=== PATIENT | male | born 1990 | race African-American/Black ===

== ENCOUNTER 2025-05-28 09:55 | Outpatient (AMB) | payer BC, SELFPAY ==
--- OUTSIDE RECORDS SUMMARY | 2025-04-16 04:30 | XMS_ITS ---
Author Organization [facility] Address [address] [place] [address] Care Team Providers Care Cashier Assistant Name Role Phone Farzad Kong Primary Care Provider Unavailabl Elias Rivera Unavailable [phone] Encounters Encounter Location Date Provider Diagnosis [address] [address] 04/16/2025 Elias Daniel Plan Of Treatment Next Appt Details Provider Name:Elias Daniel , 07/06/2025 03:15:00 PM, [address] [place] [address], [phone], Progress Notes * Ab MARIODOB:[birth year] (35 yo M)Acc No.[id number]:04/16/2025 Progress Note Patient: Kalpesh HAUSER Ab Provider: Safia Daniel DPM :1990 A ge:35 Y S ex:Male Date:04/16/2025 Address:[address] [place] [address] [id number] Pcp:Farzad Kong Subjective: * Chief Complaints: * * Medical History: Objective: * Vitals: Assessment: Plan: * Treatment: * Images: * The named appointment provid er may or may not be the originator of this progress note, and it is not deemed complete until electronically signed by the appointment provider. Sign off status: Pending * Provider: Safia Daniel DPM Date: 0 04/16/2025 Generated for Otis kumar/Ann Marie/Maria Luisa on: 0 05/28/2025 10:46 AM EDT
--- OUTSIDE RECORDS SUMMARY | 2025-05-25 04:00 | XMS_ITS ---
Author Organization [facility] [address] Address [address] [place] [address] Care Team Providers Care Oracle Database Administrator Name Role Phone MARTY STAFFORD Unavailable [phone] Medications Medication SIG (Take, Route, Frequency, Duration) Notes Start Date End Date Status Mounjaro 2.5 MG/0.5ML ADMINISTER 2.5MG U NDER THE SKIN WEEKLY; Duration: 28 Not-Taking Mounjaro 7.5 MG/0.5ML 7.5mg Subcutaneous weekly; Duration: 30 days 05/25/2025 Active Folic Acid 1 MG 1 tablet Orally Once a day; Duration: 90 days 01/23/2023 Active Nystatin 892078 UNIT/GM 1 application Ex ternally Twice a day; Duration: 30 days 05/25/2025 Active Mounjaro 5 MG/0.5ML inject 5mg Subcutane ous once weekly; Duration: 30 days Active Mounjaro 5 MG/0.5ML ADMINISTER 5 MG UNDE R THE SKIN WEEKLY Subcutaneous weekly; Duration: 28 days Active Vital Signs Blood pressure systolic 132 mm Hg 05/25/20 25 Blood pressure diastolic 80 mm Hg 025 Heart Rate 81 /min 05/25/2025 Height 72 in 05/25/2025 Weight 233.4 lbs 05/25/2025 BMI 31.65 kg/m2 05/25/2025 Oximetry 99 % 05/25/2025 Encounters Encounter Location Date Provider Diagnosis [facility] [address] [address] 05/25/2025 MARTY STAFFORD Partial symptomatic epilepsy with complex partial seizures, not intractable, without status epilepticus G40.209 ; Annual physical exam Z00.00 ; Normocytic anemia D64.9 ; Cyst of scrotum L72.9 ; Hyperlipidemia, unspecified hyperlipidemia type E78.5 ; Obesity (BMI 30-39.9) E66.9 ; Encounter for examination of blood pressure without abnormal findings Z01.30 and Metabolic dysfunction-associated steatotic liver disease (MASLD) K76.0 Assessments Encounter Date Diagnosis (ICD Code) Assessment Notes Treatment Notes Treatment Clinical Notes Section Notes 05/25/2025 Partial symptomatic epilepsy with complex partial seizures, not intractable, without status epilepticus (ICD-10 - G40.209) Acute Concerns/Problem List: 05/25/2025 Due for annual ultrasound surveillance of the testicles We will review referred He obviously has metabolic syndrome and increasing insulin resistance Weight is up, ALT is 100, MASLD Will increase Mounjaro to 7.5 Discussed metabolic adaptation and proper diet Follow-up in 3 months with A1c Of note, some information is being carried forward from prior records for informational purposes only and is being cited so that efficiency, safety and quality of the patient's care is not compromised This note was prepared using voice recognition software and direct typing Please excuse inadvertent grinder operator automatic or typing errors, or uncorrected word substitutions Although every attempt has been made by the provider to proofread this document, occasional misspellings and typographical errors may still be present Due to the previous pandemic, and the use of personal protective equipment (PPE) This may decrease voice recognition accuracy Inadvertent grinder operator automatic errors may occur 05/25/2025 Annual physical exam (ICD-10 - Z00.00) Acute Concerns/Problem List: 05/25/2025 Due for annual ultrasound surveillance of the testicles We will review referred He obviously has metabolic syndrome and increasing insulin resistance Weight is up, ALT is 100, MASLD Will increase Mounjaro to 7.5 Discussed metabolic adaptation and proper diet Follow-up in 3 months with A1c Of note, some information is being carried forward from prior records for informational purposes only and is being cited so that efficiency, safety and quality of the patient's care is not compromised This note was prepared using voice recognition software and direct typing Please excuse inadvertent grinder operator automatic or typing errors, or uncorrected word substitutions Although every attempt has been made by the provider to proofread this document, occasional misspellings and typographical errors may still be present Due to the previous pandemic, and the use of personal protective equipment (PPE) This may decrease voice recognition accuracy Inadvertent grinder operator automatic errors may occur 05/25/2025 Normocytic anemia (ICD-10 - D64.9) Acute Concerns/Problem List: 05/25/2025 Due for annual ultrasound surveillance of the testicles We will review referred He obviously has metabolic syndrome and increasing insulin resistance Weight is up, ALT is 100, MASLD Will increase Mounjaro to 7.5 Discussed metabolic adaptation and proper diet Follow-up in 3 months with A1c Of note, some information is being carried forward from prior records for informational purposes only and is being cited so that efficiency, safety and quality of the patient's care is not compromised This note was prepared using voice recognition software and direct typing Please excuse inadvertent grinder operator automatic or typing errors, or uncorrected word substitutions Although every attempt has been made by the provider to proofread this document, occasional misspellings and typographical errors may still be present Due to the previous pandemic, and the use of personal protective equipment (PPE) This may decrease voice recognition accuracy Inadvertent grinder operator automatic errors may occur 05/25/2025 Cyst of scrotum (ICD-10 - L72.9) Acute Concerns/Problem List: 05/25/2025 Due for annual ultrasound surveillance of the testicles We will review referred He obviously has metabolic syndrome and increasing insulin resistance Weight is up, ALT is 100, MASLD Will increase Mounjaro to 7.5 Discussed metabolic adaptation and proper diet Follow-up in 3 months with A1c Of note, some information is being carried forward from prior records for informational purposes only and is being cited so that efficiency, safety and quality of the patient's care is not compromised This note was prepared using voice recognition software and direct typing Please excuse inadvertent grinder operator automatic or typing errors, or uncorrected word substitutions Although every attempt has been made by the provider to proofread this document, occasional misspellings and typographical errors may still be present Due to the previous pandemic, and the use of personal protective equipment (PPE) This may decrease voice recognition accuracy Inadvertent grinder operator automatic errors may occur 05/25/2025 Hyperlipidemia, unspecified hyperlipidemia type (ICD-10 - E78.5) Acute Concerns/Problem List: 05/25/2025 Due for annual ultrasound surveillance of the testicles We will review referred He obviously has metabolic syndrome and increasing insulin resistance Weight is up, ALT is 100, MASLD Will increase Mounjaro to 7.5 Discussed metabolic adaptation and proper diet Follow-up in 3 months with A1c Of note, some information is being carried forward from prior records for informational purposes only and is being cited so that efficiency, safety and quality of the patient's care is not compromised This note was prepared using voice recognition software and direct typing Please excuse inadvertent grinder operator automatic or typing errors, or uncorrected word substitutions Although every attempt has been made by the provider to proofread this document, occasional misspellings and typographical errors may still be present Due to the previous pandemic, and the use of personal protective equipment (PPE) This may decrease voice recognition accuracy Inadvertent grinder operator automatic errors may occur 05/25/2025 Obesity (BMI 30-39.9) (ICD-10 - E66.9) Acute Concerns/Problem List: 05/25/2025 Due for annual ultrasound surveillance of the testicles We will review referred He obviously has metabolic syndrome and increasing insulin resistance Weight is up, ALT is 100, MASLD Will increase Mounjaro to 7.5 Discussed metabolic adaptation and proper diet Follow-up in 3 months with A1c Of note, some information is being carried forward from prior records for informational purposes only and is being cited so that efficiency, safety and quality of the patient's care is not compromised This note was prepared using voice recognition software and direct typing Please excuse inadvertent grinder operator automatic or typing errors, or uncorrected word substitutions Although every attempt has been made by the provider to proofread this document, occasional misspellings and typographical errors may still be present Due to the previous pandemic, and the use of personal protective equipment (PPE) This may decrease voice recognition accuracy Inadvertent grinder operator automatic errors may occur 05/25/2025 Encounter for examination of blood pressure without abnormal findings (ICD-10 - Z01.30) Acute Concerns/Problem List: 05/25/2025 Due for annual ultrasound surveillance of the testicles We will review referred He obviously has metabolic syndrome and increasing insulin resistance Weight is up, ALT is 100, MASLD Will increase Mounjaro to 7.5 Discussed metabolic adaptation and proper diet Follow-up in 3 months with A1c Of note, some information is being carried forward from prior records for informational purposes only and is being cited so that efficiency, safety and quality of the patient's care is not compromised This note was prepared using voice recognition software and direct typing Please excuse inadvertent grinder operator automatic or typing errors, or uncorrected word substitutions Although every attempt has been made by the provider to proofread this document, occasional misspellings and typographical errors may still be present Due to the previous pandemic, and the use of personal protective equipment (PPE) This may decrease voice recognition accuracy Inadvertent grinder operator automatic errors may occur 05/25/2025 Metabolic dysfunction-associ ated steatotic liver disease (MASLD) (ICD-10 - K76.0) Acute Concerns/Problem List: 05/25/2025 Due for annual ultrasound surveillance of the testicles We will review referred He obviously has metabolic syndrome and increasing insulin resistance Weight is up, ALT is 100, MASLD Will increase Mounjaro to 7.5 Discussed metabolic adaptation and proper diet Follow-up in 3 months with A1c Of note, some information is being carried forward from prior records for informational purposes only and is being cited so that efficiency, safety and quality of the patient's care is not compromised This note was prepared using voice recognition software and direct typing Please excuse inadvertent grinder operator automatic or typing errors, or uncorrected word substitutions Although every attempt has been made by the provider to proofread this document, occasional misspellings and typographical errors may still be present Due to the previous pandemic, and the use of personal protective equipment (PPE) This may decrease voice recognition accuracy Inadvertent grinder operator automatic errors may occur Plan Of Treatment Medication Medication Name Sig Start Date Stop Date Notes Mounjaro 7.5 MG/0.5ML 7.5mg Subcutaneous weekly; Duration: 30 days 05/25/2025 Nystatin 542266 UNIT/GM 1 application Ex ternally Twice a day; Duration: 30 days 05/25/2025 Next Appt Details Provider Name:MARTY STAFFORD, 08/17/2025 08:00:00 AM, [address] [facility], [facility] [address], [place], [address], Progress Notes * DAT CORREADOB:[birth year] (35 yo M)Acc No.[id number]:05/25/2025 CPE Patient: Kalpesh DAT HAUSER Provider: Kay STAFFORD NP :1990 A ge:35 Y S ex:Male Date:05/25/2025 Address:[address] [place], [place] [address], [phone] Subjective: * Chief Complaints: * * HPI: C onstitutional: Patient is here today for annual CPE Full past medical history, social history, family history, allergies and current medications were reviewed and updated. Acute Concerns/Problem List: 05/25/2025 Labs reviewed Pt feeling well, no acute complaints. Weight is up, ALT is up, We discussed metabolic adaptation, prediabetes insulin resistance No new seizures, still taking Keppra. followed by neurology Currently taking Mounjaro 5mg, tolerating with no s/e. 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3, hematocrit 36.7, normal MCV and platelets Total cholesterol 178, LDL 104, HDL 52, triglycerides 108 Vitamin D 30 TSH 2.10 Renal function electrolytes and LFTs are stable ALT of 100 likely fatty liver A1c 5.7 prediabetic UA mostly unremarkable 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 * ROS: A ll Other Systems: Review of Systems (ROS) A ll others negative except those mentioned in HPI. * Medical History: * Medications: T aking Folic Acid 1 MG Tablet 1 tablet Orally Once a day , Taking Mounjaro 5 MG/0.5ML Solution Pen-injector inject 5mg Subcutaneous once weekly , Taking Mounjaro 5 MG/0.5ML Solution Auto-injector ADMINISTER 5 MG UNDER THE SKIN WEEKLY Subcutaneous weekly , Not-Taking Mounjaro 2.5 MG/0.5ML Solution Auto-injector ADMINISTER 2.5MG UNDER THE SKIN WEEKLY Objective: * Vitals: H R:81/min, BP:132/80mm Hg, Wt:233.4lbs, BMI:31.65Index, Ht: 72 in, Oxygen sat %:99%. * Examination: G eneral Examination: GENERAL APPEARANCE: i n no acute distress, well developed, well nourished. H EAD: n ormocephalic, atraumatic. E YES: p upils equal, round, reactive to light and accommodation. E ARS: n ormal. O RAL CAVITY: m [place] moist. T HROAT: c lear. N PEPE/THYROID: n pepe supple, full range of motion, no cervical lymphadenopathy. S KIN: n o suspicious lesions, warm and dry. H EART: n o murmurs, regular rate and rhythm, S1, S2 normal. L UNGS: c lear to auscultation bilaterally. A BDOMEN: n ormal, bowel sounds present, soft, nontender, nondistended. E XTREMITIES: n o clubbing, cyanosis, or edema. N EUROLOGIC: n onfocal, motor strength normal upper and lower extremities, sensory exam intact. Assessment: * Assessment: 1. A nnual physical exam - Z00.00 (Primary) 2 . P artial symptomatic epilepsy with complex partial seizures, not intractable, without status epilepticus - G40.209 ?3. N ormocytic anemia - D64.9 4 . C yst of scrotum - L72.9 5. H yperlipidemia, unspecified hyperlipidemia type - E78.5 6 . O besity (BMI 30-39.9) - E66.9 7 . E ncounter for examination of blood pressure without abnormal findings - Z01.30 8 . M etabolic dysfunction-associated steatotic liver disease (MASLD) - K76.0 Acute Concerns/Problem List: 05/25/2025 Due for annual ultrasound surveillance of the testicles We will review referred He obviously has metabolic syndrome and increasing insulin resistance Weight is up, ALT is 100, MASLD Will increase Mounjaro to 7.5 Discussed metabolic adaptation and proper diet Follow-up in 3 months with A1c Of note, some information is being carried forward from prior records for informational purposes only and is being cited so that efficiency, safety and quality of the patient's care is not compromised This note was prepared using voice recognition software and direct typing Please excuse inadvertent grinder operator automatic or typing errors, or uncorrected word substitutions Although every attempt has been made by the provider to proofread this document, occasional misspellings and typographical errors may still be present Due to the previous pandemic, and the use of personal protective equipment (PPE) This may decrease voice recognition accuracy Inadvertent grinder operator automatic errors may occur Plan: * Treatment: * Images: Billing Information: * Visit Code: 42471 Preventive Care Est Pt. Age 18-39. Modifiers: SA * Procedure Codes: Care Plan Details* * Sign off status: Completed true * Provider: Kay STAFFORD NP Date: 05/25/2025 Generated for Otis kumar/Ann Marie/Maria Luisa on: 05/28/2025 10:46 AM EDT History and Physical Notes * HPI (History of Present Illness) Category Sub-Category Detail Notes Category Not es Constitutional Patient is here today for annual CPE Full past medical history, social history, family history, allergies and current medications were reviewed and updated. Acute Concerns/Problem List: 05/25/2025 Labs reviewed Pt feeling well, no acute complaints. Weight is up, ALT is up, We discussed metabolic adaptation, prediabetes insulin resistance No new seizures, still taking Keppra. followed by neurology Currently taking Mounjaro 5mg, tolerating with no s/e. 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3, hematocrit 36.7, normal MCV and platelets Total cholesterol 178, LDL 104, HDL 52, triglycerides 108 Vitamin D 30 TSH 2.10 Renal function electrolytes and LFTs are stable ALT of 100 likely fatty liver A1c 5.7 prediabetic UA mostly unremarkable 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[place] 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, 1 boy/1 girl no tobacco use, recr THC no other illicit drug use Health Maintenance: COVID MRNA x2 Flu 2023 TDAP UTD Examination Category Sub-Category Detail Notes Category Not es General Examination GENERAL APPEARANCE: in no ac [place] distress, well developed, well nourished HEAD: normocephalic, atrau matic EYES: pupils equal, round, reactive to light and accommodation EARS: normal THROAT: clear NECK/THYROID: neck supple, full ra nge of motion, no cervical lymphadenopathy HEART: no murmurs, regular rate and rhythm, S1, S2 normal LUNGS: clear to auscultatio n bilaterally ABDOMEN: normal, bowel sounds present, soft, nontender, nondistended NEUROLOGIC: nonfocal, motor stre ngth normal upper and lower extremities, sensory exam intact SKIN: no suspicious lesion s, warm and dry EXTREMITIES: no clubbing, cyanosi s, or edema ORAL CAVITY: mucosa moist
--- NOTE | 2025-05-28 10:39 | MHC.OFFVIS ---
Intake Visit Reasons: 1 Year Follow Up Allergies No Known Allergies Allergy (Verified 05/28/25 10:43) Medication List - Last Reconciled 05/28/25 by Jeanne Urban CNP levetiracetam 500 mg PO BID tirzepatide (Mounjaro) 7.5 mg subcut QWEEK HPI Comments Details: 35-year-old man with seizure disorder. Seizures happened during sleep. His noted his body shaking all over and frothing. He did not urinate. Each lasted for a few minutes. When he woke up he was verbally aggressive. He was doing okay. No further seizures. He was taking levetiracetam twice a day. His told him that his mood was not so good, more irritable and seemed to be more quick to anger. Sleep was not so good. 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 PENDING SALE TO [facility] Medical History (Updated 05/28/25 @ 10:47 by Jeanne Urban CNP) Obesity Generalized seizure disorder Review of Systems Const Denies chills, Denies daytime sleepiness, Denies difficulty sleeping, Denies fatigue, Denies fever(s), Denies frequent falls, Denies headache(s), Denies increased appetite, Denies poor appetite, Denies snoring, Denies weakness, Denies weight gain and Denies weight loss Eyes Denies loss of vision ENT Denies vertigo, Denies dizziness and Denies headache(s) Card Denies chest pain at rest, Denies chest pain with activity, Denies syncope, Denies leg edema and Denies palpitations Resp Denies snoring GI Denies constipation, Denies heartburn, Denies diarrhea and Denies nausea Denies urinary frequency, Denies urinary incontinence and Denies urinary urgency Musc Denies abnormal gait, Denies numbness and Denies tingling Skin/Breast Denies dry skin and Denies rash Neuro Denies abnormal gait, Denies vertigo, Denies dizziness, Denies syncope, Denies frequent falls, Denies headache(s), Denies lack of coordination, Denies loss of vision, Denies memory loss, Denies numbness, Denies restless legs, Denies seizure-like activity, Denies tingling, Denies paresthesias, Denies tremor(s) and Denies weakness Psych Reports anxiety, Reports depression, Denies auditory hallucinations, Denies memory loss, Denies visual hallucinations, Denies suicidal ideation and Reports other (stress) Endo Denies fatigue and Denies palpitations Physical Exam Const Other: General Appearance:? normal, in no acute distress. Skin:? no rashes, no significant birthmarks. Heart:? S1, S2 normal, no murmurs. Lungs:? clear anteriorly and posteriorly. Extremities:? no edema. Psych:? alert, oriented, cognitive function intact, cooperative with exam. Neuro Other: Mental Status:?Normal attention, orientation, memory and affect.? Cranial Nerves:?Pupils are equal, round and reactive to light. External occular muscles are intact. Visual coe are full. Face is symmetrical. Facial sensations are normal. Tongue is midline. Palate elevates symmetrically. Shoulder shrugging is normal. Hearing to bedside conversation is normal. Sensory Exam:?....? Coordination:?No ataxia,?no titubation.? Gait Exam: Within normal limits. Extrapyramidal System:?No tremor, rigidity with normal facial expressions.? Pronator Drift:?Not present.? Involuntary Movements:?No tremors seen.? Speech:?Normal.? Results Reviewed Results Reviewed: MRI brain WO at [facility] in May 2019: a few small non specific WM lesions, non specific EEG at [facility] in Jun 2019: left frontal sharps Assessment & Plan Assessment & Plan (1) Generalized seizure disorder: Code(s): G40.309 - Generalized idiopathic epilepsy and epileptic syndromes, not intractable, without status epilepticus Category: Medical Plan: Seizures were controlled with levetiracetam and medication was continued. Continue levetiracetam 500mg 1 tablet twice a day. (2) Anxiety: Code(s): F41.9 - Anxiety disorder, unspecified Category: Medical Plan: Start sertraline 25mg 1 tablet daily, use/side effects reviewed. Medications: New sertraline 25 mg PO DAILY 30 tabs 1RF 30 days Coding Level of Care Code Est Pt Level 4 (57196) Diagnoses Generalized seizure disorder G40.309 Anxiety F41.9
--- OUTSIDE RECORDS SUMMARY | 2025-05-28 10:46 | XMS_ITS | Clinical Summary ---
Author Organization [facility] Address [address] [place] [address] Phone Care Team Providers Care Barrel Cooper Name Role Phone Nolberto Rodriguez NP Primary Care Provider [phone] Social History Tobacco Use Types Packs/Day Years Used Date Smoking Tobacco: Never Assessed Sex and Gender Information Value Date Recorded Sex Assigned at Male 05/27/2025 10:01 AM EDT Legal Sex Male 5:38 AM EST Gender Identity Male 05/27/2025 10:01 AM EDT Sexual Orientation Straight 05/27/2025 10 :01 AM EDT Plan of Treatment Health Maintenance Due Date Last Done Comments Diabetes: Annual Foot Exam 1999 Diabetes: Annual Retina Eye Exam 1999 DTaP,Tdap,and Td Vaccines (1 - Tdap) 02/26/2008 Hepatitis A Vaccines (1 of 2 - Risk 2-dose series) 02/26/2008 Hepatitis B Vaccines (1 of 3 - 19+ 3-dose series) 02/26/2008 HIV Screening 09/17/2022 Hepatitis C Screening 09/17/2022 Social Influencers of Health Screening 09/17/2022 COVID-19 Vaccine (3 - 2023-2 5 season) 2024 12/17/2020, 11/19/2020 Depression Screening 10/15/2024 Diabetes: Annual Urine Albumin-Creatinine Ratio (uACR) 05/22/2025 Influenza Vaccine (#1) 2025 07/31/2023 Diabetes: Blood Sugar Contro l Test (HGBA1C) 11/20/2025 05/20/2025 Diabetes: Annual GFR (Glomerular Filtration Rate) 05/20/2026 05/20/2025 Cholesterol Screening (Lipid Panel) 05/20/2030 05/20/2025 HIB Vaccines Aged Out No longer eligi ble based on patient's age to complete this topic HPV Vaccines Aged Out No longer eligi ble based on patient's age to complete this topic IPV Vaccines Aged Out No longer eligi ble based on patient's age to complete this topic MMR Vaccines Aged Out No longer eligi ble based on patient's age to complete this topic Meningococcal ACWY Vaccine Aged Out N o longer eligible based on patient's age to complete this topic Meningococcal B Vaccine Aged Out No l onger eligible based on patient's age to complete this topic Pneumococcal Vaccine: Pediatrics (0 to 5 Years) and At-Risk Patients (6 to 49 Years) Aged Out No longer eligible b ased on patient's age to complete this topic RSV Immunization Patients Under 20 months Aged Out No longer eligible b ased on patient's age to complete this topic Varicella Vaccines Aged Out No longer eligible based on patient's age to complete this topic Procedures Procedure Name Priority Date/Time Associated Diagnosis Comments URINALYSIS WITH REFLEX MICROSCOPIC Routine 05/20/2025 7:47 AM EDT Screening for diabetes mellitus Avitaminosis D Routine general medical examination at a health care facility Screening for thyroid disorder Screening for lipoid disorders URINALYSIS WITH REFLEX MICROSCOPIC Routine 05/20/2025 7:47 AM EDT Screening for diabetes mellitus Avitaminosis D Routine general medical examination at a health care facility Screening for thyroid disorder Screening for lipoid disorders CBC WITH AUTO DIFFERENTIAL Routine 05/20/2025 7:39 AM EDT Screening for diabetes mellitus Avitaminosis D Routine general medical examination at a health care facility Screening for thyroid disorder Screening for lipoid disorders LIPID PANEL WITH REFLEX TO DIRECT LDL Routine 05/20/2025 7:39 AM EDT Screening for diabetes mellitus Avitaminosis D Routine general medical examination at a health care facility Screening for thyroid disorder Screening for lipoid disorders THYROID STIMULATING HORMONE Routine 05/20/2025 7:39 AM EDT Screening for diabetes mellitus Avitaminosis D Routine general medical examination at a health care facility Screening for thyroid disorder Screening for lipoid disorders CBC AND DIFFERENTIAL Routine 05/20/2025 7:39 AM EDT Screening for diabetes mellitus Avitaminosis D Routine general medical examination at a health care facility Screening for thyroid disorder Screening for lipoid disorders COMPREHENSIVE METABOLIC PANEL Routine 05/20/2025 7:39 AM EDT Screening for diabetes mellitus Avitaminosis D Routine general medical examination at a [facility] Screening for thyroid disorder Screening for lipoid disorders VITAMIN D 25 HYDROXY Routine 05/20/2025 7:39 AM EDT Screening for diabetes mellitus Avitaminosis D Routine general medical examination at a [facility] Screening for thyroid disorder Screening for lipoid disorders HEMOGLOBIN A1C Routine 05/20/2025 7:39 AM EDT Screening for diabetes mellitus Avitaminosis D Routine general medical examination at a [facility] Screening for thyroid disorder Screening for lipoid disorders from Last 3 Months Results * Urinalysis with reflex microscopic (05/20/2025 7:47 AM EDT) Pathologist [facility] [place] Specific [place] Urine 1.014 1.003 - 1.030 LAB URINALYSIS - AUTOMATED METHOD 05/20/2025 8:42 AM [facility] pH, Urine 8.0 5.0 - 8.0 pH LAB URINALYSIS - AUTOMATED METHOD 05/20/2025 8:42 AM [facility] Leukocytes, Urine Negative Negative LAB URINALYSIS - AUTOMATED METHOD 05/20/2025 8:42 AM [facility] Nitrite, Urine Negative Negative LAB URINALYSIS - AUTOMATED METHOD 05/20/2025 8:42 AM [facility] Protein, Urine Negative <=Trace mg/dL LAB URINALYSIS - AUTOMATED METHOD 05/20/2025 8:42 AM [facility] Glucose, Urine Negative Negative mg/dL LAB URINALYSIS - AUTOMATED METHOD 05/20/2025 8:42 AM [facility] Ketones, Urine Negative Negative mg/dL LAB URINALYSIS - AUTOMATED METHOD 05/20/2025 8:42 AM EDT [facility] Urobilinogen, Urine 0.2 0.2 - 1.0 mg/dL LAB URINALYSIS - AUTOMATED METHOD 05/20/2025 8:42 AM EDT [facility] Bilirubin, Urine Negative Negative LAB URINALYSIS - AUTOMATED METHOD 05/20/2025 8:42 AM EDT [facility] Blood, Urine Negative Negative LAB URINALYSIS - AUTOMATED METHOD 05/20/2025 8:42 AM EDT [facility] Urine Urine specimen obtained by clean catch procedure / Unknown Non-blood Collection / Unknown 05/20/2025 7:47 AM EDT 05/20/2025 8:26 AM EDT us Nolberto Rodriguez CLIENT RELATIONSHIP CONSULTANT LAB URINE ORDERABLES Final Re sult [facility] [address] [place] [address], * (ABNORMAL) Lipid panel with reflex to direct LDL (05/20/2025 7:39 AM EDT) Cholesterol 178 0 - 200 mg/dL LAB CHEMISTRY METHOD 05/20/2025 9:00 AM [facility] Triglycerides 108 0 - 150 mg/dL LAB CHEMISTRY METHOD 05/20/2025 9:00 AM [facility] HDL 52 >=40 mg/dL LAB CHEMISTRY METHOD 05/20/2025 9:00 AM [facility] LDL Calculated 104(H) 0 - 100 mg/dL LAB CHEMISTRY METHOD 05/20/2025 9:00 AM [facility] Comment:Estimated LDL Calcul ated using equation: Total cholesterol - HDL cholesterol - (Triglycerides/5) VLDL Cholesterol Paul 21.6 mg/dL LAB CHEMISTRY METHOD 05/20/2025 9:00 AM EDT [facility] Non HDL Chol. (LDL+VLDL) 126 <145 mg/dL LAB CHEMISTRY METHOD 05/20/2025 9:00 AM T [facility] Chol/HDL Ratio 3.4 0.0 - 4.4 LAB CHEMISTRY METHOD 05/20/2025 9:00 AM [facility] Blood Venous blood specimen / Unknown Venipuncture / Unknown 05/20/2025 7:39 AM EDT 05/20/2025 8:25 AM EDT us Nolberto Rodriguez CLIENT RELATIONSHIP CONSULTANT LAB BLOOD ORDERABLES Final Re sult [facility] [address] [place] [address], * (ABNORMAL) CBC auto differential (05/20/2025 7:39 AM EDT) WBC 7.8 4.8 - 10.8 K/mcL LAB HEMETOLOGY METHOD 05/20/2025 8:30 AM [facility] RBC 3.80(L) 4.50 - 5.50 M/[facility] LAB HEMETOLOGY METHOD 05/20/2025 8:30 AM [facility] Hemoglobin 12.3(L) 13.5 - 17.5 g/dL LAB HEMETOLOGY METHOD 05/20/2025 8:30 AM [facility] Hematocrit 36.7(L) 42.0 - 54.0 % LAB HEMETOLOGY METHOD 05/20/2025 8:30 AM [facility] MCV 96.6 79.0 - 98.0 FL LAB HEMETOLOGY METHOD 05/20/2025 8:30 AM [facility] MCH 32.4(H) 27.0 - 32.0 pcg LAB HEMETOLOGY METHOD 05/20/2025 8:30 AM [facility] MCHC 33.5 32.0 - 37.0 g/dL LAB HEMETOLOGY METHOD 05/20/2025 8:30 AM [facility] RDW 12.9 11.0 - 15.0 % LAB HEMETOLOGY METHOD 05/20/2025 8:30 AM [facility] Platelets 330 130 - 400 K/mcL LAB HEMETOLOGY METHOD 05/20/2025 8:30 AM [facility] MPV 9.7 7.0 - 11.0 FL LAB HEMETOLOGY METHOD 05/20/2025 8:30 AM [facility] NRBC 0.0 <1.0 % LAB HEMETOLOGY METHOD 05/20/2025 8:30 AM [facility] NRBC Absolute 0.00 <0.10 K/mcL LAB HEMETOLOGY METHOD 05/20/2025 8:30 AM [facility] Neutrophils Relative 59.7 % LAB HEMETOLOGY METHOD 05/20/2025 8:30 AM [facility] Lymphocytes Relative 28.5 % LAB HEMETOLOGY METHOD 05/20/2025 8:30 AM [facility] Monocytes Relative 8.7 % LAB HEMETOLOGY METHOD 05/20/2025 8:30 AM [facility] Eosinophils Relative 2.4 % LAB HEMETOLOGY METHOD 05/20/2025 8:30 AM [facility] Basophils Relative 0.6 % LAB HEMETOLOGY METHOD 05/20/2025 8:30 AM [facility] Immature Granulocytes Relative 0.1 % LAB HEMETOLOGY METHOD 05/20/2025 8:30 AM [facility] Neutrophils Absolute 4.66 1.50 - 7.00 K/mcL LAB HEMETOLOGY METHOD 05/20/2025 8:30 AM [facility] Lymphocytes Absolute 2.23 1.00 - 5.00 K/mcL LAB HEMETOLOGY METHOD 05/20/2025 8:30 AM EDT [facility] Monocytes Absolute 0.68 0.20 - 1.00 K/[facility] LAB HEMETOLOGY METHOD 05/20/2025 8:30 AM EDT [facility] Eosinophils Absolute 0.19 0.00 - 0.50 K/[facility] LAB HEMETOLOGY METHOD 05/20/2025 8:30 AM EDT [facility] Basophils Absolute 0.05 0.00 - 0.20 K/[facility] LAB HEMETOLOGY METHOD 05/20/2025 8:30 AM EDT [facility] Immature Granulocytes Absolute 0.01 0.00 - 0.03 K/[facility] LAB HEMETOLOGY METHOD 05/20/2025 8:30 AM EDT [facility] Blood Venous blood specimen / Unknown Venipuncture / Unknown 05/20/2025 7:39 AM EDT 05/20/2025 8:26 AM EDT Nolberto Rodriguez CLIENT RELATIONSHIP CONSULTANT LAB BLOOD ORDERABLES Final Re sult Performing Organization Address City/[facility]/ZIP Co de Phone Number [facility] [address] [place] [address], * Vitamin D 25 hydroxy (05/20/2025 7:39 AM EDT) Vit D, 25-Hydroxy 30.2 30.0 - 80.0 ng/mL LAB CHEMISTRY METHOD 05/20/2025 9:54 AM EDT [facility] Blood Venous blood specimen / Unknown Venipuncture / Unknown 05/20/2025 7:39 AM EDT 05/20/2025 8:25 AM EDT Nolberto Rodriguez CLIENT RELATIONSHIP CONSULTANT LAB BLOOD ORDERABLES Final Re sult [facility] [address] [place] [address], [place] [phone] * Thyroid stimulating hormone (05/20/2025 7:39 AM EDT) [facility] TSH 2.10 0.40 - 4.00 mcIU/mL LAB CHEMISTRY METHOD 05/20/2025 9:54 AM EDT [facility] Blood Venous blood specimen / Unknown Venipuncture / Unknown 05/20/2025 7:39 AM EDT 05/20/2025 8:25 AM EDT Nolberto Rodriguez CLIENT RELATIONSHIP CONSULTANT LAB BLOOD ORDERABLES Final Re sult Performing Organization Address [facility]/ZIP Co de Phone Number [facility] [address] [place] [address], [place] [phone] * Hemoglobin A1c (05/20/2025 7:39 AM EDT) [facility] Hemoglobin A1C 5.7 <6.5 % LAB CHEMISTRY METHOD 05/20/2025 10:22 AM EDT [facility] Mean Bld Glu Estim. 117 mg/dL LAB CHEMISTRY METHOD 05/20/2025 10:22 AM EDT [facility] Blood Venous blood specimen / Unknown Venipuncture / Unknown 05/20/2025 7:39 AM EDT 05/20/2025 8:26 AM EDT Nolberto Rodriguez CLIENT RELATIONSHIP CONSULTANT LAB BLOOD ORDERABLES Final Re sult [facility] [address] [place] [address], [place] [phone] * (ABNORMAL) Comprehensive metabolic panel (05/20/2025 7:39 AM EDT) [facility] Sodium 137 133 - 145 mmol/L LAB CHEMISTRY METHOD 05/20/2025 9:04 AM EDT [facility] Potassium 4.2 3.5 - 5.5 mmol/L LAB CHEMISTRY METHOD 05/20/2025 9:04 AM [facility] Chloride 107 96 - 110 mmol/L LAB CHEMISTRY METHOD 05/20/2025 9:04 AM [facility] CO2 28 21 - 32 mmol/L LAB CHEMISTRY METHOD 05/20/2025 9:04 AM [facility] Anion Gap 2(L) 3 - 11 LAB CHEMISTRY METHOD 05/20/2025 9:04 AM [facility] Glucose 83 70 - 100 mg/dL LAB CHEMISTRY METHOD 05/20/2025 9:04 AM [facility] BUN 19 5 - 25 mg/dL LAB CHEMISTRY METHOD 05/20/2025 9:04 AM [facility] Creatinine 0.85 0.70 - 1.30 mg/dL LAB CHEMISTRY METHOD 05/20/2025 9:04 AM [facility] eGFR 115 >=60 mL/min/1. 73m2 LAB CHEMISTRY METHOD 05/20/2025 9:04 AM [facility] Comment:Calculation based on the Chronic Kidney Disease Epidemiology Collaboration (CKD-EPI) equation refit without adjustment for race. BUN/Creatinine Ratio 22.4 LAB CHEMISTRY METHOD 05/20/2025 9:04 AM [facility] Calcium 9.7 8.5 - 10.5 mg/dL LAB CHEMISTRY METHOD 05/20/2025 9:04 AM [facility] AST (SGOT) 42 10 - 42 unit/L LAB CHEMISTRY METHOD 05/20/2025 9:04 AM [facility] ALT (SGPT) 100(H) 10 - 60 unit/L LAB CHEMISTRY METHOD 05/20/2025 9:04 AM [facility] Alkaline Phosphatase 99 42 - 121 unit/L LAB CHEMISTRY METHOD 05/20/2025 9:04 AM EDT [facility] Total Protein 7.1 6.0 - 8.0 g/dL LAB CHEMISTRY METHOD 05/20/2025 9:04 AM EDT [facility] Albumin 4.0 3.2 - 5.0 g/dL LAB CHEMISTRY METHOD 05/20/2025 9:04 AM EDT [facility] Total Bilirubin 0.5 0.0 - 1.4 mg/dL LAB CHEMISTRY METHOD 05/20/2025 9:04 AM EDT [facility] Blood Venous blood specimen / Unknown Venipuncture / Unknown 05/20/2025 7:39 AM EDT 05/20/2025 8:25 AM EDT Nolberto Rodriguez NP LAB BLOOD ORDERABLES Final Re sult [facility] [address] [place] [address], from Last 3 Months Insurance Care Teams Barrel Cooper Relationship Specialty Start Date End Date Nolberto Rodriguez, TANESHA [address] [address] PCP - General Nurse Practitioner 05/20/25
--- OUTSIDE RECORDS SUMMARY | 2025-05-28 10:46 | XMS_ITS ---
[facility] Name [facility] Organization Unknown Care Team Organization Name Specialty Phone Email Start Date End Da sherwin [facility] ROWAN GOOD Primary Care 10/23/2022 06/02/2024
== END 2025-05-28 10:52 | disposition home or self-care (01) ==
LOC: HO.HSM 10:05
PROVIDERS: PCP Internal Medicine; Referring Provider Internal Medicine; Visit Provider Registered Nurse
DX: G40.309 Generalized idiopathic epilepsy and epileptic syndromes, not intractable, without status epilepticus (principal); F41.9 Anxiety disorder, unspecified
CPT/HCPCS: 99214

== ENCOUNTER 2025-07-10 08:56 | Outpatient (AMB) | payer BC, SELFPAY ==
--- OUTSIDE RECORDS SUMMARY | 2025-04-16 04:30 | XMS_ITS ---
Author Organization [facility] Address [address] [place] [address] Care Team Providers Care Easter Bunny Name Role Phone Farzad Kong Primary Care Provider Unavailabl Elias Rivera Unavailable [phone] Encounters Encounter Location Date Provider Diagnosis [address] [address] 04/16/2025 Elias Daniel Plan Of Treatment Next Appt Details Provider Name:Elias Daniel , 10/22/2025 01:45:00 PM, [address] [place] [address], [phone], Progress Notes * Ab MARIODOB:[birth year] (35 yo M)Acc No.[id number]:04/16/2025 Progress Note Patient: Kalpesh HAUSER Ab Provider: Safia Daniel DPM :1990 A ge:35 Y S ex:Male Date:04/16/2025 Address:[address] [place] [address] [id number] Pcp:Farzad Kong Subjective: * Chief Complaints: * [...] for Otis kumar/Ann Marie/Maria Luisa on: 0 07/10/2025 09:34 AM EDT
--- OUTSIDE RECORDS SUMMARY | 2025-07-06 11:15 | XMS_ITS ---
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 Name Role Phone Dilan Farzad Primary Care Provider Elias Rosado Unavailable [phone] Allergies No Known Allergies REASON FOR VISIT At Risk Footcare, Painful Nail(s) aggrevated by shoes and causing difficulty standing/walking., Wart(s), Toe Irritation Medications Medication SIG (Take, Route, Frequency, Duration) Notes Start Date End Date Status Ammonium Lactate 12 % APPLY TOPICALLY TO THE AFFECTED AREA TWICE DAILY; Duration: 30 Active Extra Depth Orthopedic Shoes (1 Pair) with Customized Heat Molded Multidensity Innersoles (3 Pair) as directed Dx: NIDDM (E11.9), Hammertoe Foot Deformity (M20.41,M20.42), Preulcerative Skin Lesion(s) (L85.1) Active levETIRAcetam 500 MG 1 tablet Orally leeanna ry 12 hrs Not-Taking Ciclopirox Olamine 0.77 % 1 application to affected area Externally to feet Twice a day; Duration: 30 days Active Mounjaro 2.5 MG/0.5ML as directed Subcutaneous Active Sertraline HCl 25 MG 1 tablet Orally Onc e a day Active Keppra Active Social History Tobacco Use: Social History Observation Description Date Details (start date - stop date) Never Smoker NA - NA Tobacco use other than smoking: Question Answer Notes Are you an other tobacco user? No Tobacco Control (Standard) Question Answer Notes Tobacco use: Nonsmoker Additional Findings: Tobacco non-user Current no nsmoker AUDIT-C (Standard) Question Answer Notes Did you have a drink containing alcohol in the p ast year? No Points 0 Interpretation Negative Vital Signs Height 5ft 11in in 07/06/2025 Weight 220 lbs 07/06/2025 BMI 30.68 kg/m2 07/06/2025 Blood pressure systolic 131 mm Hg 07/06/20 25 Blood pressure diastolic 69 mm Hg 025 Procedures Procedure Date Ordered Date Performed Result Body Sit e 57519-DRGAMYO NAIL, 6 OR MORE 07/06/2025 N/A 50831-Hqyn Destruction, 1-14 07/06/2025 N/A Encounters Encounter Location Date Provider Diagnosis [facility] [address] [address] 07/06/2025 Elias María Pain in right toe(s) M79.674 ; Plantar wart B07.0 ; Tinea unguium B35.1 ; Pain in left toe(s) M79.675 ; Type 2 diabetes mellitus without complication E11.9 ; Right foot pain M79.671 ; Other hammer toe(s) (acquired), right foot M20.41 and Other hammer toe(s) (acquired), left foot M20.42 Assessments Encounter Date Diagnosis (ICD Code) Assessment Notes Treatment Notes Treatment Clinical Notes Section Notes 07/06/2025 Pain in right toe(s) (ICD-10 - M79.674) 07/06/2025 Plantar wart (ICD-10 - B07.0) 07/06/2025 Tinea unguium (ICD-10 - B35.1) 07/06/2025 Pain in left toe(s) (ICD-10 - M79.675) 07/06/2025 Type 2 diabetes mellitus without complication (ICD-10 - E11.9) 07/06/2025 Right foot pain (ICD-10 - M79.671) 07/06/2025 Other hammer toe(s) (acquired), right foot (ICD-10 - M20.41) 07/06/2025 Other hammer toe(s) (acquired), left foot (ICD-10 - M20.42) Plan Of Treatment Pending Test Test Name Order Date 92743-MMPEOLE NAIL, 6 OR MORE 07/06/2025 70222-Xwmc Destruction, -07/06/2025 Next Appt Details Follow Up: prn, Reason: Provider Name:Elias Daniel , 10/22/2025 01:45:00 PM, [address] [facility], [address], [place], [address], Procedure Notes * Category Sub-Category Detail Notes Wart Treatment Procedure Verruca, as desc ribed in exam, were debrided to pin-point bleeding margins with sterile 15 surgical blade, silver nitrate chemocautery applied, recomm. immune-boosting meds such as zinc, recomm. follow up with topical chemosurgical agents, recomm. Wartstick 40 percent Salicylic acid application under occlusion as directed, Pt defers any other forms of tx - 15651 Debride Nail 6-10 Nail debridement Due to the cl inical pathology outlined in the exam findings, performance of this nail treatment is medically necessary as its management by an unskilled/untrained nonprofessional would put this patients foot and overall health at risk. Therefore, debridement to affected nail(s), as described in exam ( TA , T1 , T2 , T4 , T5 , T6 , T7 , T9 ), was performed exclusively by the physician of record to reduce/remove overall nail length, girth, thickness, subungual debris, and necrotic tissue, by manual and/or electrical means through the use of a nail nipper and/or dremel-type cylinder grinder, to a more viable healthy nail plate or bed tissue 6-10 nails in total. Silver nitrate was used for any petechial bleeding as necessary. Definitive antifungal treatment options, both pharmaceutical and surgical, have been reviewed and discussed with the patient. The patient solely prefers the use of intermittent/as needed professional debridement services for their nail condition and understands the need for additional periodic treatments to maintain effectiveness in symptomatic relief - 15561 Progress Notes * Ab MARIODOB:[birth year] (35 yo M)Acc No.[id number]:07/06/2025 Progress Note Patient: Kalpesh HAUSER Ab Provider: Safia Daniel DPM :1990 A ge:35 Y S ex:Male Date:07/06/2025 Address:[address] [place], [place] [id number] Pcp:Farzad Kong Subjective: * Chief Complaints: * A t Risk FootcarePainful Nail(s) aggrevated by shoes and causing difficulty standing/walking.Wart(s)Toe Irritation * HPI: A t Risk footcare: Pt States Last PCP Visit: D ate 0 05/21/2025 T oe pain: Treatments: R x shoes. * ROS: G eneral/Constitutional: Nausea d enies. V omiting d enies. H dayo Thirst d enies. L oss appetite d enies. C hills d enies. F atigue d enies.?Fever d enies. N ight Sweats a dmits. U nexplained weight loss d enies. U nexplained weight gain d enies. H EENTM: Dentures d enies. D izziness d enies. G lasses/contacts a dmits. R etinopathy d enies. B lurred/double vision d enies. T MJ?denies. D ischarge/drainage d enies. I mplants d enies. S ore throat d enies. D ental implants d enies. H jamila of hearing d enies. D ifficulty chewing/swallowing/speaking d enies. N ose bleeds d enies. S ore mouth d enies. ? R espiratory: On Oxygen d enies. P neumonia/pleurisy d enies.?Bronchitis d enies. E mphysema d enies. C oughing d enies. C ough blood?denies. S hortness of breath d enies. W heezing d enies. C ardiovascular: Pacemaker d enies. M ENTERPRISE MANAGER d enies. W PW d enies. C HF d enies. H eart attack d enies. S eptal defect d enies. R apid beat d enies. C hest pain d enies. A trial Fib. d enies. M urmur/Palpitations d enies. G astrointestinal: Hemorrhoids d enies. S tomach/Abdominal pain d enies. D ark blood stool d enies. I rritable bowel d enies. C onstipation d enies. D iarrhea d enies. H ematology: Swelling d enies. C lots d enies. V aricose Veins d enies. B ruising d enies. B leeding problem d enies. G enitourinary: Blood urine d enies. F requent/Painfu/urination/bladder control d enies. K idney stones d enies. I nfection (UTI) d enies. N ephropathy d enies. s ex trans dis (STD) d enies. P rostate d enies. M usculoskeletal: Hammertoes a dmits. B unions d enies. B ack Pain d enies. M uscle Cramps/ Resting d enies. M uscle cramps / walking d enies.?Generalized aches and pains d enies. W eakness d enies. I nteg.: Ritter d enies. S cars d enies. C orns/calluses?admits. I ngrown nails a dmits. P ainful nails a dmits. O pen Sores a dmits. R ashes a dmits. N eurologic: Difficulty sleeping d enies. B rain disorder d enies. N umbness d enies. B alance trouble d enies. C onfusion d enies. F ainting/blackouts d enies. T ingling d enies. T remors d enies. * Medical History: * Surgical History: N o Surgical History documented. * Hospitalization/Major Diagno stic Procedure: N o Hospitalization History. * Family History: M other: alive. F ather: alive. M aternal Grand Mother: cancer. S pouse: alive.? * Social History: T obacco Use: T obacco use other than smoking A re you an other tobacco user? N o Tobacco Control (Standard) T obacco use: N onsmoker A dditional Findings: Tobacco non-user C urrent nonsmoker M iscellaneous: C affeine: yes. 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 Marital status: . 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 D rug/Alcohol: A SAEED-C (Standard) D id you have a drink containing alcohol in the past year? N o P oints 0 I nterpretation N egative * Medications: T akingSertraline HCl 25 MG Tablet 1 tablet Orally Once a day Keppra Mounjaro 2.5 MG/0.5ML Solution Pen-injector as directed Subcutaneous Ciclopirox Olamine 0.77 % Cream 1 application to affected area Externally to feet Twice a day Extra Depth Orthopedic Shoes (1 Pair) with Customized Heat Molded Multidensity Innersoles (3 Pair) as directed Dx: NIDDM (E11.9), Hammertoe Foot Deformity (M20.41,M20.42), Preulcerative Skin Lesion(s) (L85.1) Ammonium Lactate 12 % Cream APPLY TOPICALLY TO THE AFFECTED AREA TWICE DAILY Taking Sertraline HCl 25 MG Tablet 1 tablet Orally Once a day Taking Keppra Taking Mounjaro 2.5 MG/0.5ML Solution Pen-injector as directed Subcutaneous Taking Ciclopirox Olamine 0.77 % Cream 1 application to affected area Externally to feet Twice a day Taking Extra Depth Orthopedic Shoes (1 Pair) with Customized Heat Molded Multidensity Innersoles (3 Pair) as directed Dx: NIDDM (E11.9), Hammertoe Foot Deformity (M20.41,M20.42), Preulcerative Skin Lesion(s) (L85.1) Taking Ammonium Lactate 12 % Cream APPLY TOPICALLY TO THE AFFECTED AREA TWICE DAILY Not-Taking/PRNlevETIRAcetam 500 MG Tablet 1 tablet Orally every 12 hrs Medication List reviewed and reconciled with the patientNot-Taking/PRN levETIRAcetam 500 MG Tablet 1 tablet Orally every 12 hrs Medication List reviewed and reconciled with the patient * Allergies: N .K.D.A.yes[Allergies Verified] Objective: * Vitals: H t: 5ft 11in, Wt:220, BMI:30.68, Shoe size: 13, BP:131/69mm Hg, Ht-cm: 180.34 cm, Wt-k.79 kg. * P ast Orders: L ab:HEMOGLOBIN A1C (GLYCOHEMOGLOBIN) (Order Date - 05/20/2025) (Collection Date & Time - 05/21/2025 03:46 PM) Value Reference Range HEMOGLOBIN A1C % (HH) 5.7 * Examination: O phthalmology Referral: DIABETES EYE EXAM P rocedure Performed: Syeda Gonzalez ate of Exam Performed 0 01/10/2025 D iabetic Retinopathy Screening: Y fatoumata R etinal Screening Performed: Syeda ham F indings of Diabetic Eye Exam: n o retinopathy N ails: NAILS are: E longated, overgrown, dystrophic, lytic, greater than 3mm thick, discolored and friable with crumbly malodorous subungual debris, with pain on palpation , TA , T1 , T2 , T4 , T5 , T6 , T7 , T9 , all other nails not described with characteristics as possessing mycosis are elongated, overgrown, and dystrophic. D ermatologic: SKIN FINDINGS: S kin exam reveals Keratotic lesion(s) located at , SUB MTH (s) , 1 , B/L , SUB MTH (s) , 2 , B/L , SUB MTH (s) , 3 , B/L , SUB MTH (s) , 4 , B/L , SUB MTH (s) , 5 , B/L , Heel(s) , B/L. VERRUCA: R eveals a Single , multi-loculated , mosaic-patterned, round, raised, flat- topped, petechial bleeding papule(s), with cauliflower appearance and interruption of skin lines, pain to lateral compression, and size estimated at 10mm diameter , plantar Forefoot , RIGHT. O rthopedic: DIGITAL DEFORMITIES: D igital contracture, PIPJ, 2-5 B/L, incompl-reducible to push-up test, no over, nor underlapping, there is no longer, evidence of shoe producing skin irritation. FOOTWEAR EVALUATION: g ood condition, exhibit proper fit and accommodation for pedal deformities. OT were inspected and noted to be worn, but in good condition giving proper support at the present time. N eurological: SENSORY: N eurological exam reveals intact sensorium, pain sensation normal, vibration sensation intact, pinprick sensation is normal in the lower extremities, 5.07 monofilament test performed at plantar aspects of 5 varied sites per foot shows sensation, normal, B/L, Pt denies, anesthesia, burning, paresthesia, tingling, B/L. DEEP TENDON REFLEXES: A chilles , 2/4, B/L. ? G eneral Examination: GENERAL APPEARANCE: R eveals a pleasant, alert, well nourished, well-developed, well hydrated individual, who demonstrates proper attention to hygiene/body habitus, and is in no acute distress , Pt serves as own historian for office visit today. ORIENTED: p stephenon, place, and time. FOOT EXAM: L ower Extremity Neurological Exam performed:?Yes V isual exam of foot performed: Y es D ate 0 07/06/2025 Footwear Evaluation F ootwear Evaluation performed: Y es Assessment: * Assessment: 1. P lantar wart - B07.0 (Primary) S pecify :RIGHT 2 . P ain in right toe(s) - M79.674 3 . T inea unguium - B35.1 4 . P ain in left toe(s) - M79.675 5 . T ype 2 diabetes mellitus without complication - E11.9 6 . R ight foot pain - M79.671 7 . O ther hammer toe(s) (acquired), right foot - M20.41 S pecify :Chronic problem, Stable (1=3,2=4), Response to treatment - Improvement 8 . O ther hammer toe(s) (acquired), left foot - M20.42 S pecify :Chronic problem, Stable (1=3,2=4), Response to treatment - Improvement Plan: * Treatment: 2. T inea unguium P rocedure: 59214-[id number] NAIL, 6 OR MORE * Procedures: D ebride Nail 6-10: Nail debridement D ue to the clinical pathology outlined in the exam findings, performance of this nail treatment is medically necessary as its management by an unskilled/untrained nonprofessional would put this patients foot and overall health at risk. Therefore, debridement to affected nail(s), as described in exam ( T A , T 1 , T 2?, T 4 , T 5 , T 6 , T 7 , T 9 ) , was performed exclusively by the physician of record to reduce/remove overall nail length, girth, thickness, subungual debris, and necrotic tissue, by manual and/or electrical means through the use of a nail nipper and/or dremel-type cylinder grinder, to a more viable healthy nail plate or bed tissue 6-10 nails in total. Silver nitrate was used for any petechial bleeding as necessary. Definitive antifungal treatment options, both pharmaceutical and surgical, have been reviewed and discussed with the patient. The patient solely prefers the use of intermittent/as needed professional debridement services for their nail condition and understands the need for additional periodic treatments to maintain effectiveness in symptomatic relief - 66025. W art Treatment: Procedure V erruca, as described in exam, were debrided to pin-point bleeding margins with sterile 15 surgical blade, silver nitrate chemocautery applied, recomm. immune-boosting meds such as zinc, recomm. follow up with topical chemosurgical agents, recomm. Wartstick 40 percent Salicylic acid application under occlusion as directed, Pt defers any other forms of tx - 50579. * Procedure Codes: 1 7110 Wart Destruction, 1-14, Modifiers: XS 35264 DEBRIDE NAIL, 6 OR MORE, Modifiers: XS * Preventive Medicine: Counseling: D iscussion: - 13: Office or other outpatient visit for the evaluation and management of an established patient, which required a medically appropriate history and/or examination and LOW level of DECISION MAKING for: 1 STABLE ACUTE UNCOMPLICATED PROBLEM, 2 OR MORE MINOR PROBLEMS, OR 1 STABLE CHRONIC PROBLEM, THAT POSE(S) A LOW RISK FOR MORBIDITY/MORTALITY. The visit on the day of the encounter encompassed interpreting the data and educating the patient as to the nature of their condition, treatment options available according to their individual PMH, meds, allergies, and overall health/living conditions, as well as any potential risks or complications that may occur from a failure to adhere to, and participate in, the recommended course of therapy. The discussion included a complete verbal, and/or written explanation of the examination results, any x-rays taken, the proposed diagnosis, and outline of the treatment plan. A schedule for future care needs was also explained. The patient verbalized an understanding of the instructions at this time and agreed to be an active participant in their treatment. If the patient should think of any questions or concerns after the visit, I have encouraged the patient to call the office. S hoe Gear Counseling: A thorough inspection of the patients Rxed shoe gear and inserts was performed and findings communicated. We reviewed the many important medical advantages for adhering to regularly wearing these shoe and insert accommodative devices daily as well as reviewed the fact that a failure in accepting these recommendations may be deleterious, unable to prevent, and result in many pedal complications such as skin irritation, skin ulceration, infection, and even loss of toe/foot/leg/or even their life. Time was also spent reviewing the proper foot care techniques including daily skin moisturization, daily foot inspection for any interruption in skin integrity, open lesions, or sign of infection such as redness/malodor/drainage/swelling as well as daily shoe inspection for the presence of trapped foreign bodies in the shoe as well as insert wear. Patient questions re: shoes, inserts, and self foot inspections were answered to their satisfaction as the patient verbally confirmed a full understanding of the above information.? Screening/Special Tests: F all Risk Screening: N o falls in the past year F ALLS: Screening for Future Fall Risk Have you had any falls with injury in the past year? N o * Follow Up: p rn * Images: * Sign off status: Completed true * Provider: Safia Daniel DPM Date: 07/06/2025 Generated for Otis kumar/Ann Marie/Maria Luisa on: 07/10/2025 09:33 AM EDT History and Physical Notes * HPI (History of Present Illness) Category Sub-Category Detail Notes Category Not es Toe pain Treatments: Rx shoes At Risk footcare Pt States Last PCP Visit: Date: Examination Category Sub-Category Detail Notes Category Not es Neurological SENSORY: Neurological exa m reveals intact sensorium, pain sensation normal, vibration sensation intact, pinprick sensation is normal in the lower extremities, 5.07 monofilament test performed at plantar aspects of 5 varied sites per foot shows sensation, normal, B/L, Pt denies, anesthesia, burning, paresthesia, tingling, B/L DEEP TENDON REFLEXES: Achilles , 2/4, B/ L Dermatologic SKIN FINDINGS: Skin exam reveal s Keratotic lesion(s) located at , SUB MTH (s) , 1 , B/L , SUB MTH (s) , 2 , B/L , SUB MTH (s) , 3 , B/L , SUB MTH (s) , 4 , B/L , SUB MTH (s) , 5 , B/L , Heel(s) , B/L VERRUCA: Reveals a Single , m ulti-loculated , mosaic-patterned, round, raised, flat-topped, petechial bleeding papule(s), with cauliflower appearance and interruption of skin lines, pain to lateral compression, and size estimated at 10mm diameter , plantar Forefoot , RIGHT Orthopedic FOOTWEAR EVALUATION: good condit ion, exhibit proper fit and accommodation for pedal deformities. OT were inspected and noted to be worn, but in good condition giving proper support at the present time DIGITAL DEFORMITIES: Digital contracture , PIPJ, 2-5 B/L, incompl-reducible to push-up test, no over, nor underlapping, there is no longer, evidence of shoe producing skin irritation General Examination GENERAL APPEARANCE: Reveals a pleasant, alert, well nourished, well-developed, well hydrated individual, who demonstrates proper attention to hygiene/body habitus, and is in no acute distress , Pt serves as own historian for office visit today FOOT EXAM: Lower Extremity Neurological Exa m performed:: Yes Visual exam of foot performed:: Yes Date: 07/06/2025 ORIENTED: person, place, and t suzan Footwear Evaluation Footwear Evaluation performe d:: Yes Ophthalmology Referral DIABETES EYE EXAM Procedure Perform ed:: Yes Date of Exam Performed: 01/10/2025 Diabetic Retinopathy Screening:: Yes Retinal Screening Performed:: Yes Findings of Diabetic Eye Exam:: no retin opathy Nails NAILS are: Elongated, overg rown, dystrophic, lytic, greater than 3mm thick, discolored and friable with crumbly malodorous subungual debris, with pain on palpation , TA , T1 , T2 , T4 , T5 , T6 , T7 , T9 , all other nails not described with characteristics as possessing mycosis are elongated, overgrown, and dystrophic
--- NOTE | 2025-07-10 08:58 | MHC.OFFVIS ---
Intake Visit Reasons: 6 weeks/ Med change update Allergies No Known Allergies Allergy (Verified 07/10/25 08:59) Medication List - Last Reconciled 07/10/25 by Jeanne Urban CNP levetiracetam 500 mg PO BID sertraline 25 mg PO DAILY 30 days tirzepatide (Mounjaro) 7.5 mg subcut QWEEK HPI Comments Details: 35-year-old man with seizure disorder. Seizures happened during sleep. His noted his body shaking all over and frothing. He did not urinate. Each lasted for a few minutes. When he woke up he was verbally aggressive. He was doing okay. No seizures. Mood was bit better with sertraline, less anxious and irritable. His noticed some improvement as well. He had some headaches when he first started medication which have subsided. Sleep was okay. 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 [facility] Medical History (Updated 05/28/25 @ 10:47 by Jeanne Urban CNP) Obesity Generalized seizure disorder Review of Systems Const Denies chills, Denies daytime sleepiness, Denies difficulty sleeping, Denies fatigue, Denies fever(s), Denies frequent falls, Denies headache(s), Denies increased appetite, Denies poor appetite, Denies snoring, Denies weakness, Denies weight gain and Denies weight loss Eyes Denies loss of vision ENT Denies vertigo, Denies dizziness and Denies headache(s) Card Denies chest pain at rest, Denies chest pain with activity, Denies syncope, Denies leg edema and Denies palpitations Resp Denies snoring GI Denies constipation, Denies heartburn, Denies diarrhea and Denies nausea Denies urinary frequency, Denies urinary incontinence and Denies urinary urgency Musc Denies abnormal gait, Denies numbness and Denies tingling Skin/Breast Denies dry skin and Denies rash Neuro Denies abnormal gait, Denies vertigo, Denies dizziness, Denies syncope, Denies frequent falls, Denies headache(s), Denies lack of coordination, Denies loss of vision, Denies memory loss, Denies numbness, Denies restless legs, Denies seizure-like activity, Denies tingling, Denies paresthesias, Denies tremor(s) and Denies weakness Psych Reports anxiety, Reports depression, Denies auditory hallucinations, Denies memory loss, Denies visual hallucinations, Denies suicidal ideation and Reports other (stress) Endo Denies fatigue and Denies palpitations Physical Exam Const Other: Unable to do due to televisit. Telehealth Telehealth Telehealth Platform: Telephone Location of provider rendering services: practice address Location of patient: address on file Patient Identification confirmed using: Name, : Yes Telehealth method: voice only Patient verbally consented to treatment: Yes Patient verbally consented to billing insurance company: Yes Results Reviewed Results Reviewed: MRI brain WO at [facility] in May 2019: a few small non specific WM lesions, non specific EEG at [facility] in Jun 2019: left frontal sharps Assessment & Plan Assessment & Plan (1) Generalized seizure disorder: Code(s): G40.309 - Generalized idiopathic epilepsy and epileptic syndromes, not intractable, without status epilepticus Category: Medical Plan: Continue levetiracetam 500mg 1 tablet twice a day. (2) Anxiety: Code(s): F41.9 - Anxiety disorder, unspecified Category: Medical Plan: Continue sertraline 25mg 1 tablet daily. Coding Level of Care Code Tele Est Pt Level 4 (01493) Diagnoses Generalized seizure disorder G40.309 Anxiety F41.9
--- OUTSIDE RECORDS SUMMARY | 2025-07-10 09:34 | XMS_ITS | Patient Health Record ---
Author Organization [facility] [address] Address [address] [place] [address] Care Team Providers Care Editor Publications Name Role Phone MARTY STAFFORD Unavailable [phone] MARITO GOOD Unavailable [phone] Allergies No Known Allergies Results Component Value Reference Range Notes US SCROTUM AND CONTENTS Reviewed date:06/08/2025 04:35:30 PM Interpretation: Performing Lab: Notes/Report: Note See Note [facility], a member of [employer] Patient Name: DAT CORREA Date of : 1990 Reason for Exam: CYST OF SCROTUM Exam Date: 06/04/2025 [id number] EST Report Status: Final Ordering Provider: MARTY STAFFORD PCP: MATRY STAFFORD History: Follow-up c yst of scrotum. Findings: High resolution real-time imaging of the scrotal contents was performed. The right testis measures 5.1 x 2.6 x 3.2 cm. Normal vascular flow is demonstrated with Doppler. No testicular mass is seen. Testicular microlithiasis is again demonstrated. The left testis measures 5.0 x 2.4 x 3.5 cm. Again seen is a testicular cyst measuring 3.7 x 2.9 x 3.6 mm, without significant change. Testicular microlithiasis is again demonstrated. There is normal blood flow within the testis by Doppler analysis. The epididymes are normal. No significant hydrocele or varicocele is seen. IMPRESSION: Impression: 1. Stable sub-5 mm l eft testicular cyst. 2. No solid testicul ar masses. 3. Bilateral testicu lar microlithiasis, without significant change[place] ([id number]) -------- FINAL REPOR T -------- Dictated By: Chantelle Gregory i Dictated Date: 06/08/2025 16:14 ET Assigned Physician: Chantelle Curiel Reviewed and Electronically Signed By: Chantelle Curiel Signed Date: 16:18 ET Workstation ID: [id number] Transcribed By: Self Edit Transcribed Date: 06/08/2025 16:14 ET URINALYSIS WITH REFLEX MICRO SCOPIC Reviewed date:05/20/2025 08:55:10 AM Interpretation: Performing Lab: Notes/Report: Specific [place] Urine 1.014 1.003-1.030 pH, Urine 8.0 5.0-8.0 pH Leukocytes, Urine Negative Negative Nitrite, Urine Negative Negative Protein, Urine Negative <=Trace mg/dL Glucose, Urine Negative Negative mg/dL Ketones, Urine Negative Negative mg/dL Urobilinogen, Urine 0.2 0.2-1.0 mg/dL Bilirubin, Urine Negative Negative Blood, Urine Negative Negative COMPREHENSIVE METABOLIC PANE L Reviewed date:05/20/2025 09:32:00 AM Interpretation: Performing Lab: Notes/Report: Sodium 137 133-145 mmol/L Potassium 4.2 3.5-5.5 mmol/L Chloride 107 96-110 mmol/L CO2 28 21-32 mmol/L Anion Gap 2 3-11 Glucose 83 70-100 mg/dL BUN 19 5-25 mg/dL Creatinine 0.85 0.70-1.30 mg/dL eGFR 115 >=60 mL/min/1.73m2 Calculati on based on the Chronic Kidney Disease Epidemiology Collaboration (CKD-EPI) equation refit without adjustment for race. BUN/Creatinine Ratio 22.4 Calcium 9.7 8.5-10.5 mg/dL AST (SGOT) 42 10-42 unit/L ALT (SGPT) 100 10-60 unit/L Alkaline Phosphatase 99 42-121 unit/L Total Protein 7.1 6.0-8.0 g/dL Albumin 4.0 3.2-5.0 g/dL Total Bilirubin 0.5 0.0-1.4 mg/dL THYROID STIMULATING HORMONE Reviewed date:05/20/2025 10:22:47 AM Interpretation: Performing Lab: Notes/Report: TSH 2.10 0.40-4.00 mcIU/mL VITAMIN D 25 HYDROXY Reviewed date:05/20/2025 10:22:47 AM Interpretation: Performing Lab: Notes/Report: Vit D, 25-Hydroxy 30.2 30.0-80.0 ng/mL LIPID PANEL WITH REFLEX TO D IRECT LDL Reviewed date:05/20/2025 09:32:00 AM Interpretation: Performing Lab: Notes/Report: Cholesterol 178 0-200 mg/dL Triglycerides 108 0-150 mg/dL HDL 52 >=40 mg/dL LDL Calculated 104 0-100 mg/dL Estimated LDL Calculated using equation: Total cholesterol - HDL cholesterol - (Triglycerides/5) VLDL Cholesterol Paul 21.6 Non HDL Chol. (LDL+VLDL) 126 <145 mg/dL Chol/HDL Ratio 3.4 0.0-4.4 CBC WITH AUTO DIFFERENTIAL Reviewed date:05/20/2025 08:55:10 AM Interpretation: Performing Lab: Notes/Report: WBC 7.8 4.8-10.8 K/mcL RBC 3.80 4.50-5.50 M/mcL Hemoglobin 12.3 13.5-17.5 g/dL Hematocrit 36.7 42.0-54.0 % MCV 96.6 79.0-98.0 FL MCH 32.4 27.0-32.0 pcg MCHC 33.5 32.0-37.0 g/dL RDW 12.9 11.0-15.0 % Platelets 330 130-400 K/mcL MPV 9.7 7.0-11.0 FL NRBC 0.0 <1.0 % NRBC Absolute 0.00 <0.10 K/mcL Neutrophils Relative 59.7 Lymphocytes Relative 28.5 Monocytes Relative 8.7 Eosinophils Relative 2.4 Basophils Relative 0.6 Immature Granulocytes Relative 0.1 Neutrophils Absolute 4.66 1.50-7.00 K/mcL Lymphocytes Absolute 2.23 1.00-5.00 K/mcL Monocytes Absolute 0.68 0.20-1.00 K/mcL Eosinophils Absolute 0.19 0.00-0.50 K/mcL Basophils Absolute 0.05 0.00-0.20 K/mcL Immature Granulocytes Absolute 0.01 0.00-0.03 K/mcL HEMOGLOBIN A1C Reviewed date:05/20/2025 10:27:34 AM Interpretation: Performing Lab: Notes/Report: Hemoglobin A1C 5.7 <6.5 % Mean Bld Glu Estim. 117 Reason For Referral No Information Medications Medication SIG (Take, Route, Frequency, Duration) Notes Start Date End Date Status Mounjaro 2.5 MG/0.5ML ADMINISTER 2.5MG U NDER THE SKIN WEEKLY; Duration: 28 Not-Taking Mounjaro 5 MG/0.5ML ADMINISTER 5 MG UNDE R THE SKIN WEEKLY Subcutaneous weekly; Duration: 28 days Active Mounjaro 7.5 MG/0.5ML 7.5mg Subcutaneous weekly; Duration: 30 days 05/25/2025 Active Folic Acid 1 MG 1 tablet Orally Once a day; Duration: 90 days 01/23/2023 Active Nystatin 092696 UNIT/GM 1 application Ex ternally Twice a day; Duration: 30 days 05/25/2025 Active Mounjaro 5 MG/0.5ML inject 5mg Subcutane ous once weekly; Duration: 30 days Active Immunizations Vaccine Route Administration Date Status Comme nts influenza IM Intramuscular 07/31/2023 Administered Social History Tobacco Use: Social History Observation Description Date Details (start date - stop date) Former Smoker NA - NA Tobacco Use/Smoking Question Answer Notes Are you a former smoker 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 advised patient to cut down on the amount he is currently smoking and if possible, try cutting it out completely in order to avoid exposure to unnecessary chemicals/ toxins Problem Seizure (finding) (82180350) Other seizures (G40.89) Active confirmed Problem Balanitis (49012526) Balanitis (N48.1) Active confirmed Problem Adult health examination (355164675) Encounter for general adult medical examination without abnormal findings (Z00.00) Active confirmed Problem Lipid screening (815731030) Encounter for screening for lipoid disorders (Z13.220) Active confirmed Problem Hyperlipidaemia (25661471) Hyperlipidemia, unspecified hyperlipidemia type (E78.5) Active confirmed Problem Acquired hypothyroidism (360115528) Acquired hypothyroidism (E03.9) Active confirmed Problem Adult health examination (151908263) Adult general medical exam (Z00.00) Active confirmed Problem Fatigue (88524365) Fatigue, unspecified type (R53.83) Active confirmed Problem Hypothyroidism (38103411) Hypothyroidism, unspecified type (E03.9) Active confirmed Problem Prediabetes (078784877) Pre-diabetes (R73.03) Active confirmed Problem Vitamin B12 deficiency (non anemic) (91643031) Vitamin B 12 deficiency (E53.8) Active confirmed Problem Diabetes mellitus screening (212084557) Diabetes mellitus screening (Z13.1) Active confirmed Problem Body mass index 40+ - morbidly obese (939132950) BMI 40.0-44.9, adult (Z68.41) Active confirmed Problem Type II diabetes mellitus without complication (385869874) Type 2 diabetes mellitus without complication, without long-term current use of insulin (E11.9) Active confirmed Problem Obesity (328874240) Obesity (BMI 30-39.9) (E66.9) Active confirmed Problem Normocytic anemia (953499136) Normocytic anemia (D64.9) Active confirmed Problem Morbid obesity (617573290) Morbid obesity due to excess calories (E66.01) Active confirmed Problem Complex partial epileptic seizure (780924533) Partial symptomatic epilepsy with complex partial seizures, not intractable, without status epilepticus (G40.209) Active confirmed Problem Avitaminosis D (04964254) Avitaminosis D (E55.9) Active confirmed Problem Endocrine/metabol ic screening (245366599) Encounter for screening for endocrine disorder (Z13.29) Active confirmed Problem Type II diabetes mellitus without complication (336558721) Diabetes mellitus without complication (E11.9) Active confirmed Vital Signs Heart Rate 81 /min 05/25/2025 Oximetry 99 % 05/25/2025 Blood pressure diastolic 80 mm Hg 05/25/2025 Height 72 in 05/25/2025 Blood pressure systolic 132 mm Hg 05/25/2025 Weight 233.4 lbs 05/25/2025 BMI 31.65 kg/m2 05/25/2025 Encounters Encounter Location Date Provider Diagnosis [facility] [address] [address] 11/17/2024 MARTY BORHOT Partial symptomatic epilepsy with complex partial seizures, not intractable, without status epilepticus G40.209 ; Normocytic anemia D64.9 ; Cyst of scrotum L72.9 ; Hyperlipidemia, unspecified hyperlipidemia type E78.5 and Obesity (BMI 30-39.9) E66.9 [facility] [address] [address] 05/25/2025 MARTY BORHOT Partial symptomatic epilepsy with complex partial seizures, not intractable, without status epilepticus G40.209 ; Annual physical exam Z00.00 ; Normocytic anemia D64.9 ; Cyst of scrotum L72.9 ; Hyperlipidemia, unspecified hyperlipidemia type E78.5 ; Obesity (BMI 30-39.9) E66.9 ; Encounter for examination of blood pressure without abnormal findings Z01.30 and Metabolic dysfunction-associated steatotic liver disease (MASLD) K76.0 [facility] [address] [address] 08/01/2024 MARTY BORHOT [facility] [address] [address] 01/02/2025 MARITO GOOD [facility] [address] [address] 01/06/2025 MARTY BORHOT Partial symptomatic epilepsy with complex partial seizures, not intractable, without status epilepticus G40.209 [facility] [address] [address] 03/19/2025 MARTY BORHOT Partial symptomatic epilepsy with complex partial seizures, not intractable, without status epilepticus G40.209 [facility] [address] [address] 03/19/2025 MARTY BORHOT [facility] [address] [address] 03/19/2025 MARTY BORHOT [facility] [address] [address] 07/01/2025 MARTY BORHOT [facility] [address] [address] 07/03/2025 MARTY STAFFORD [facility] [address] [facility] [address] [place] [address] 07/06/2025 MARTY STAFFORD Assessments Encounter Date Diagnosis (ICD Code) Assessment Notes Treatment Notes Treatment Clinical Notes Section Notes 11/17/2024 Partial symptomatic epilepsy with complex partial seizures, not intractable, without status epilepticus (ICD-10 - G40.209) Acute Concerns/Problem List: 11/17/2024 Will update comprehensive labs and physical in May Repeat testicular ultrasound annual surveillance in February Thriving on dual incretin continue Mounjaro 5 mg maintenance dosing Of note, some information is being carried forward from prior records for informational purposes only and is being cited so that efficiency, safety and quality of the patient's care is not compromised This note was prepared using voice recognition software and direct typing Please excuse inadvertent barrel raiser helper or typing errors, or uncorrected word substitutions Although every attempt has been made by the provider to proofread this document, occasional misspellings and typographical errors may still be present Due to the previous pandemic, and the use of personal protective equipment (PPE) This may decrease voice recognition accuracy Inadvertent barrel raiser helper errors may occur 01/06/2025 Partial symptomatic epilepsy with complex partial seizures, not intractable, without status epilepticus (ICD-10 - G40.209) 03/19/2025 Partial symptomatic epilepsy with complex partial seizures, not intractable, without status epilepticus (ICD-10 - G40.209) 05/25/2025 Annual physical exam (ICD-10 - Z00.00) [...] software and direct typing Please excuse inadvertent barrel raiser helper or typing errors, or uncorrected word substitutions Although every attempt has been made by the provider to proofread this document, occasional misspellings and typographical errors may still be present Due to the previous pandemic, and the use of personal protective equipment (PPE) This may decrease voice recognition accuracy Inadvertent barrel raiser helper errors may occur 05/25/2025 Partial symptomatic epilepsy with complex partial [...] software and direct typing Please excuse inadvertent barrel raiser helper or typing errors, or uncorrected word substitutions Although every attempt has been made by the provider to proofread this document, occasional misspellings and typographical errors may still be present Due to the previous pandemic, and the use of personal protective equipment (PPE) This may decrease voice recognition accuracy Inadvertent barrel raiser helper errors may occur 05/25/2025 Normocytic anemia (ICD-10 [...] software and direct typing Please excuse inadvertent barrel raiser helper or typing errors, or uncorrected word substitutions Although every attempt has been made by the provider to proofread this document, occasional misspellings and typographical errors may still be present Due to the previous pandemic, and the use of personal protective equipment (PPE) This may decrease voice recognition accuracy Inadvertent barrel raiser helper errors may occur 11/17/2024 Normocytic anemia (ICD-10 - D64.9) Acute Concerns/Problem List: 11/17/2024 Will update comprehensive labs and physical in May Repeat testicular ultrasound annual surveillance in February Thriving on dual incretin continue Mounjaro 5 mg maintenance dosing Of note, some information is being carried forward from prior records for informational purposes only and is being cited so that efficiency, safety and quality of the patient's care is not compromised This note was prepared using voice recognition software and direct typing Please excuse inadvertent barrel raiser helper or typing errors, or uncorrected word substitutions Although every attempt has been made by the provider to proofread this document, occasional misspellings and typographical errors may still be present Due to the previous pandemic, and the use of personal protective equipment (PPE) This may decrease voice recognition accuracy Inadvertent barrel raiser helper errors may occur 11/17/2024 Cyst of scrotum (ICD-10 - L72.9) Acute Concerns/Problem List: 11/17/2024 Will update comprehensive labs and physical in May Repeat testicular ultrasound annual surveillance in February Thriving on dual incretin continue Mounjaro 5 mg maintenance dosing Of note, some information is being carried forward from prior records for informational purposes only and is being cited so that efficiency, safety and quality of the patient's care is not compromised This note was prepared using voice recognition software and direct typing Please excuse inadvertent barrel raiser helper or typing errors, or uncorrected word substitutions Although every attempt has been made by the provider to proofread this document, occasional misspellings and typographical errors may still be present Due to the previous pandemic, and the use of personal protective equipment (PPE) This may decrease voice recognition accuracy Inadvertent barrel raiser helper errors may occur 05/25/2025 Cyst of scrotum [...] software and direct typing Please excuse inadvertent barrel raiser helper or typing errors, or uncorrected word substitutions Although every attempt has been made by the provider to proofread this document, occasional misspellings and typographical errors may still be present Due to the previous pandemic, and the use of personal protective equipment (PPE) This may decrease voice recognition accuracy Inadvertent barrel raiser helper errors may occur 05/25/2025 Hyperlipidemia, unspecified hyperlipidemia [...] software and direct typing Please excuse inadvertent barrel raiser helper or typing errors, or uncorrected word substitutions Although every attempt has been made by the provider to proofread this document, occasional misspellings and typographical errors may still be present Due to the previous pandemic, and the use of personal protective equipment (PPE) This may decrease voice recognition accuracy Inadvertent barrel raiser helper errors may occur 11/17/2024 Hyperlipidemia, unspecified hyperlipidemia type (ICD-10 - E78.5) Acute Concerns/Problem List: 11/17/2024 Will update comprehensive labs and physical in May Repeat testicular ultrasound annual surveillance in February Thriving on dual incretin continue Mounjaro 5 mg maintenance dosing Of note, some information is being carried forward from prior records for informational purposes only and is being cited so that efficiency, safety and quality of the patient's care is not compromised This note was prepared using voice recognition software and direct typing Please excuse inadvertent barrel raiser helper or typing errors, or uncorrected word substitutions Although every attempt has been made by the provider to proofread this document, occasional misspellings and typographical errors may still be present Due to the previous pandemic, and the use of personal protective equipment (PPE) This may decrease voice recognition accuracy Inadvertent barrel raiser helper errors may occur 11/17/2024 Obesity (BMI 30-39.9) (ICD-10 - E66.9) Acute Concerns/Problem List: 11/17/2024 Will update comprehensive labs and physical in May Repeat testicular ultrasound annual surveillance in February Thriving on dual incretin continue Mounjaro 5 mg maintenance dosing Of note, some information is being carried forward from prior records for informational purposes only and is being cited so that efficiency, safety and quality of the patient's care is not compromised This note was prepared using voice recognition software and direct typing Please excuse inadvertent barrel raiser helper or typing errors, or uncorrected word substitutions Although every attempt has been made by the provider to proofread this document, occasional misspellings and typographical errors may still be present Due to the previous pandemic, and the use of personal protective equipment (PPE) This may decrease voice recognition accuracy Inadvertent barrel raiser helper errors may occur 05/25/2025 Obesity (BMI 30-39.9) [...] software and direct typing Please excuse inadvertent barrel raiser helper or typing errors, or uncorrected word substitutions Although every attempt has been made by the provider to proofread this document, occasional misspellings and typographical errors may still be present Due to the previous pandemic, and the use of personal protective equipment (PPE) This may decrease voice recognition accuracy Inadvertent barrel raiser helper errors may occur 05/25/2025 Encounter for examination [...] software and direct typing Please excuse inadvertent barrel raiser helper or typing errors, or uncorrected word substitutions Although every attempt has been made by the provider to proofread this document, occasional misspellings and typographical errors may still be present Due to the previous pandemic, and the use of personal protective equipment (PPE) This may decrease voice recognition accuracy Inadvertent barrel raiser helper errors may occur 05/25/2025 Metabolic dysfunction-associ ated [...] software and direct typing Please excuse inadvertent barrel raiser helper or typing errors, or uncorrected word substitutions Although every attempt has been made by the provider to proofread this document, occasional misspellings and typographical errors may still be present Due to the previous pandemic, and the use of personal protective equipment (PPE) This may decrease voice recognition accuracy Inadvertent barrel raiser helper errors may occur Plan Of Treatment Pending Test Test Name Order Date Electroencephalography (EEG) 06/03/2019 Lipid Panel 07/15/2019 Comp. Metabolic Panel (14) 07/15/2019 CBC 07/15/2019 Ultrasound : Scrotum 01/30/2024 Ultrasound : Testicular 11/17/2024 MRI : Brain without Contrast 06/03/2019 25OH VITAMIN D 01/30/2024 CBC (COMPLETE BLOOD COUNT) 01/23/2023 CBC (COMPLETE BLOOD COUNT) WITH DIFF COMPREHENSIVE METABOLIC PANEL 05/19/2024 COMPREHENSIVE METABOLIC PANEL 01/30/2024 HEMOGLOBIN A1C 05/19/2024 HEMOGLOBIN A1C 01/30/2024 HEMOGLOBIN A1C 01/23/2023 IRON & TIBC 01/23/2023 LIPID PANEL 05/19/2024 LIPID PANEL 01/30/2024 TSH 01/30/2024 TSH 05/19/2024 URINALYSIS W/REFLEX CULTURE 01/30/2024 VITAMIN B12 01/23/2023 XR Wrist 2 Views RT 12/28/2021 LIPID PANEL, STANDARD 12/07/2022 LIPID PANEL, STANDARD 11/17/2024 COMPREHENSIVE METABOLIC PANEL 11/17/2024 COMPREHENSIVE METABOLIC PANEL 12/07/2022 CBC (INCLUDES DIFF/PLT) 12/07/2022 CBC (INCLUDES DIFF/PLT) 11/17/2024 CBC (INCLUDES DIFF/PLT) 05/19/2024 URINALYSIS, COMPLETE 11/17/2024 URINALYSIS, COMPLETE 12/07/2022 HEMOGLOBIN A1c 11/17/2024 HEMOGLOBIN A1c 12/07/2022 TSH 11/17/2024 VITAMIN D,25-OH,TOTAL,IA 11/17/2024 VITAMIN D,25-OH,TOTAL,IA 12/07/2022 VITAMIN D, 1,25 DIHYDROXY LC/MS/MS 05/19 FOLATE 01/23/2023 COMPLETE URINALYSIS 05/19/2024 Next Appt Details Provider Name:MARTY STAFFORD, 08/17/2025 08:00:00 AM, [address] [place] [address] [address], [address], Insurance Providers Payer Name Payer Address Payer Phone Subscriber Number Group Number Insured Name Patient Relationship to Insured Coverage Start Date Coverage End Date [facility] [address] [place] [address] [id number] DAT CORREA Self - patient is the insured
--- OUTSIDE RECORDS SUMMARY | 2025-07-10 09:34 | XMS_ITS | Patient Health Record ---
[facility] Address [address] [place] [address] Care Team Providers Care Station Master Name Role Phone Farzad Kong Primary Care Provider Kayla e Elias Daniel Unavailable [phone] Allergies No Known Allergies Results Component Value Reference Range Notes HEMOGLOBIN A1C (GLYCOHEMOGLO BIN) Reviewed date:01/14/2025 02:51:01 PM Interpretation: Performing Lab: Notes/Report: HEMOGLOBIN A1C % (HH) 5.2 HEMOGLOBIN A1C (GLYCOHEMOGLO BIN) Reviewed date:07/06/2025 03:46:50 PM Interpretation: Performing Lab: Notes/Report: HEMOGLOBIN A1C % (HH) 5.7 Reason For Referral Diagnosis 1 Type 2 diabetes chucho itus without complication (E11.9) Diagnosis 2 Plantar wart (B07.0) Diagnosis 3 Other hammer toe(s) (acquired), right foot (M20.41) Diagnosis 4 Other hammer toe(s) (acquired), left foot (M20.42) Referring Provider First Name Farzad Referring Provider Last Name Dilan Referring Provider Speciality Internal M edicine Referred Organization [facility] Referred Provider Elias Daniel Referred Address [address] [place] [address],[address] ,[place], [place],[address], Referred Provider Specialty Podiatry Referral Priority Routine Medications Medication SIG (Take, Route, Frequency, Duration) Notes Start Date End Date Status Sertraline HCl 25 MG 1 tablet Orally Onc e a day Active Ammonium Lactate 12 % APPLY TOPICALLY TO THE AFFECTED AREA TWICE DAILY; Duration: 30 Active Extra Depth Orthopedic Shoes (1 Pair) with Customized Heat Molded Multidensity Innersoles (3 Pair) as directed Dx: NIDDM (E11.9), Hammertoe Foot Deformity (M20.41,M20.42), Preulcerative Skin Lesion(s) (L85.1) Active levETIRAcetam 500 MG 1 tablet Orally leeanna ry 12 hrs Not-Taking Keppra Active Ciclopirox Olamine 0.77 % 1 application to affected area Externally to feet Twice a day; Duration: 30 days Active Mounjaro 2.5 MG/0.5ML as directed Subcutaneous Active Social History Tobacco Use: Social History Observation Description Date Details (start date - stop date) Never Smoker NA - NA Alcohol Screen Question Answer Notes Did you have a drink containing alcohol in the p ast year? No Points 0 Interpretation Negative Tobacco use other than smoking: Question Answer Notes Are you an other tobacco user? No Tobacco Control (Standard) Question Answer Notes Tobacco use: Nonsmoker Additional Findings: Tobacco non-user Current no nsmoker AUDIT-C (Standard) Question Answer Notes Did you have a drink containing alcohol in the p ast year? No Points 0 Interpretation Negative Problems Problem Type SNOMED Code ICD Code Onset Dates Problem Status W/U Status Risk Notes Problem Acquired hammer toe of right foot (737016832764822 5) Other hammer toe(s) (acquired), right foot (M20.41) Active confirmed Problem Acquired hammer toe of left foot (507911852371430 3) Other hammer toe(s) (acquired), left foot (M20.42) Active confirmed Problem Plantar wart (35628624) Plantar wart (B07.0) Active confirmed Problem Type II diabetes mellitus without complication (787961980) Type 2 diabetes mellitus without complication (E11.9) Active confirmed Vital Signs Blood pressure diastolic 69 mm Hg 07/06/2025 Height 5ft 11in in 07/06/2025 Blood pressure systolic 131 mm Hg 07/06/2025 Weight 220 lbs 07/06/2025 BMI 30.68 kg/m2 07/06/2025 Procedures Procedure Date Ordered Date Performed Result Body Sit e 42029-JRAWIYM NAIL, 6 OR MORE 08/04/2024 N/A 51784-Mryi Destruction, 1-14 08/04/2024 N/A 71773-UXRDTQP NAIL, 6 OR MORE 10/27/2024 N/A 73039-Idlo Destruction, 1-14 10/27/2024 N/A 73013-YZHMXDW NAIL, 6 OR MORE 01/14/2025 N/A 85274-Vcpm Destruction, 1-14 01/14/2025 N/A 67479-MXQFROR NAIL, 6 OR MORE 07/06/2025 N/A 97412-Excf Destruction, 1-14 07/06/2025 N/A Encounters Encounter Location Date Provider Diagnosis [address] [address] 08/04/2024 Elias María Pain in right toe(s) M79.674 ; Plantar wart B07.0 ; Tinea unguium B35.1 ; Pain in left toe(s) M79.675 ; Type 2 diabetes mellitus without complication E11.9 ; Right foot pain M79.671 ; Other hammer toe(s) (acquired), right foot M20.41 and Other hammer toe(s) (acquired), left foot M20.[address] [address] 10/27/2024 Elias María Pain in right toe(s) M79.674 ; Plantar wart B07.0 ; Tinea unguium B35.1 ; Pain in left toe(s) M79.675 ; Type 2 diabetes mellitus without complication E11.9 and Right foot pain M79.[address] [address] 01/14/2025 Elias María Pain in right toe(s) M79.674 ; Plantar wart B07.0 ; Tinea unguium B35.1 ; Pain in left toe(s) M79.675 ; Type 2 diabetes mellitus without complication E11.9 ; Right foot pain M79.671 ; Other hammer toe(s) (acquired), right foot M20.41 and Other hammer toe(s) (acquired), left foot M20.[address] [address] 07/06/2025 Elias María Pain in right toe(s) M79.674 ; Plantar wart B07.0 ; Tinea unguium B35.1 ; Pain in left toe(s) M79.675 ; Type 2 diabetes mellitus without complication E11.9 ; Right foot pain M79.671 ; Other hammer toe(s) (acquired), right foot M20.41 and Other hammer toe(s) (acquired), left foot M20.42 [facility] [place] [address] [place] [address] 02/20/2025 [facility] [address] [facility] [address] [place] [address] 04/14/2025 Elias Daniel Assessments Encounter Date Diagnosis (ICD Code) Assessment Notes Treatment Notes Treatment Clinical Notes Section Notes 08/04/2024 Plantar wart (ICD-10 - B07.0) 08/04/2024 Pain in right toe(s) (ICD-10 - M79.674) 10/27/2024 Plantar wart (ICD-10 - B07.0) 10/27/2024 Pain in right toe(s) (ICD-10 - M79.674) 01/14/2025 Plantar wart (ICD-10 - B07.0) 01/14/2025 Pain in right toe(s) (ICD-10 - M79.674) 07/06/2025 Plantar wart (ICD-10 - B07.0) 07/06/2025 Pain in right toe(s) (ICD-10 - M79.674) 07/06/2025 Tinea unguium (ICD-10 - B35.1) 01/14/2025 Tinea unguium (ICD-10 - B35.1) 10/27/2024 Tinea unguium (ICD-10 - B35.1) 08/04/2024 Tinea unguium (ICD-10 - B35.1) 08/04/2024 Pain in left toe(s) (ICD-10 - M79.675) 10/27/2024 Pain in left toe(s) (ICD-10 - M79.675) 01/14/2025 Pain in left toe(s) (ICD-10 - M79.675) 07/06/2025 Pain in left toe(s) (ICD-10 - M79.675) 01/14/2025 Type 2 diabetes mellitus without complication (ICD-10 - E11.9) 08/04/2024 Type 2 diabetes mellitus without complication (ICD-10 - E11.9) 07/06/2025 Type 2 diabetes mellitus without complication (ICD-10 - E11.9) 10/27/2024 Type 2 diabetes mellitus without complication (ICD-10 - E11.9) 10/27/2024 Right foot pain (ICD-10 - M79.671) 08/04/2024 Right foot pain (ICD-10 - M79.671) 07/06/2025 Right foot pain (ICD-10 - M79.671) 01/14/2025 Right foot pain (ICD-10 - M79.671) 07/06/2025 Other hammer toe(s) (acquired), right foot (ICD-10 - M20.41) 01/14/2025 Other hammer toe(s) (acquired), right foot (ICD-10 - M20.41) Patient Educated with: DIABETIC FOOT CARE INSTRUCTIONS.p df (DIABETIC FOOT CARE INSTRUCTIONS.p df) 08/04/2024 Other hammer toe(s) (acquired), right foot (ICD-10 - M20.41) Patient Educated with: DIABETIC FOOT CARE INSTRUCTIONS.p df (DIABETIC FOOT CARE INSTRUCTIONS.p df) 07/06/2025 Other hammer toe(s) (acquired), left foot (ICD-10 - M20.42) 08/04/2024 Other hammer toe(s) (acquired), left foot (ICD-10 - M20.42) 01/14/2025 Other hammer toe(s) (acquired), left foot (ICD-10 - M20.42) 10/27/2024 Other Plan Of Treatment Pending Test Test Name Order Date 61697-OTWLYGZ NAIL, 6 OR MORE 03/28/2023 03634-OBOVLWD NAIL, 6 OR MORE 08/29/2023 38470-EMVWDKJ NAIL, 6 OR MORE 01/28/2024 22556-ZSZOZHL NAIL, 6 OR MORE 04/28/2024 50678-VPRBQCN NAIL, 6 OR MORE 08/04/2024 04091-GQZQQJP NAIL, 6 OR MORE 10/27/2024 65425-GQXHFQU NAIL, 6 OR MORE 01/14/2025 71419-CWFIBFW NAIL, 6 OR MORE 07/06/2025 10308-Ftii Destruction, -07/06/2025 05165-Pazl Destruction, -14 01/14/2025 64872-Nkup Destruction, -10/27/2024 44345-Qtxg Destruction, -08/04/2024 99367-Zxgy Destruction, -04/28/2024 74358-Gcre Destruction, -01/28/2024 89950-Clpzjkkd Plate 03/28/2023 Next Appt Details Provider Name:Elias Daniel , 10/22/2025 01:45:00 PM, [address] [facility], [facility] [address], [place], [address], Insurance Providers Payer Name Payer Address Payer Phone Subscriber Number Group Number Insured Name Patient Relationship to Insured Coverage Start Date Coverage End Date [facility] [address] [place] [address] [id number] Ce Mario Spouse - patient is the spouse of the insured Medical (General) History Medical History History ICD Code Diabetic Surgical History Surgery Date(Month/Year)
--- OUTSIDE RECORDS SUMMARY | 2025-07-10 09:34 | XMS_ITS | Clinical Summary ---
Author Organization [facility] Address [address] [place] [address] Phone Care Team Providers Care Security Professionals Name Role Phone Nolberto Rodriguez NP Primary Care Provider [phone] Encounters Date Type Department Care Team Description 06/04/2025 7:15 AM EDT - 06/04/2025 11:59 PM EDT Hospital Encounter [facility] Ultrasound [address] [place] [address] Cyst of scrotum Discharge Disposition: Home or Self Care from Last 3 Months Social History Tobacco Use Types Packs/Day Years [...] 09/17/2022 Social Influencers of Health Screening 09/17/2022 Depression Screening 10/15/2024 Diabetes: Annual Urine Albumin-Creatinine Ratio (uACR) 05/22/2025 COVID-19 Vaccine (3 - 2024-2 6 season) 2025 12/17/2020, 11/19/2020 Influenza Vaccine (#1) 2025 07/31/2023 Diabetes: Blood Sugar Contro l Test (HGBA1C) 11/20/2025 05/20/2025 Diabetes: Annual GFR (Glomerular Filtration Rate) 05/20/2026 05/20/2025 Cholesterol Screening (Lipid Panel) 05/20/2030 05/20/2025 RSV Immunization Adult Patients (1 - 1-dose 75+ series) 02/26/2064 HIB Vaccines Aged Out No longer eligi [...] Procedure Name Priority Date/Time Associated Diagnosis Comments US SCROTUM AND CONTENTS Routine 06/04/2025 8:20 AM EDT Cyst of scrotum URINALYSIS WITH REFLEX MICROSCOPIC Routine 05/20/2025 7:47 [...] disorders from Last 3 Months Results * US Scrotum and Contents (06/04/2025 8:20 AM EDT) Anatomical Region Laterality Modality Body Ultrasound 06/08/2025 4:14 PM EDT Impressions 06/08/2025 4:18 PM EDT Impression: 1. Stable sub-5 mm left testicular cyst. 2. No solid testicular masses. 3. Bilateral testicular microlithiasis, without significant change. [facility] RADHA ([id number]) -------- FINAL REPORT -------- Dictated By: Chantelle Curiel Dictated Date: 06/08/2025 16:14 ET Assigned Physician: Chantelle Curiel Reviewed and Electronically Signed By: Chantelle Curiel Signed Date: 06/08/2025 16:18 ET Workstation ID: [id number] Transcribed By: Self Edit Transcribed Date: 06/08/2025 16:14 ET Narrative 06/08/2025 4:18 PM EDT History: Follow-up cyst of scrotum. Findings: High resolution real-time imaging [...] No significant hydrocele or varicocele is seen. Procedure Note Chantelle Curiel MD - 06/08/2025 History: Follow-up cyst of scrotum. Findings: High resolution real-time imaging of the scrotal contents was performed. The right testis measures 5.1 x 2.6 x 3.2 cm. Normal vascular flow isdemonstrated with Doppler. No testicular mass is seen. Testicularmicrolithiasis is again demonstrated. The left testis measures 5.0 x 2.4 x 3.5 cm. Again seen is a testicularcyst measuring 3.7 x 2.9 x 3.6 mm, without significant change. Testicularmicrolithiasis is again demonstrated. There is normal blood flow withinthe testis by Doppler analysis. The epididymes are normal. No significant hydrocele or varicocele is seen. IMPRESSION: Impression: 1. Stable sub-5 mm left testicular cyst. 2. No solid testicular masses. 3. Bilateral testicular microlithiasis, without significant change. [facility] GARCIA ([id number]) -------- FINAL REPORT -------- Dictated By: Chantelle Curiel Dictated Date: 06/08/2025 16:14 ET Assigned Physician: Chantelle Curiel Reviewed and Electronically Signed By: Chantelle Curiel Signed Date: 06/08/2025 16:18 ET Workstation ID: [id number] Transcribed By: Self Edit Transcribed Date: 06/08/2025 16:14 ET us Nolberto Rodriguez SOLAR PROJECT COORDINATION SPECIALIST IMG US PROCEDURES Final Resul t * Urinalysis with reflex microscopic (05/20/2025 7:47 AM EDT) Specific Bee Urine 1.014 1.003 - 1.030 LAB URINALYSIS - AUTOMATED METHOD 05/20/2025 8:42 AM [facility] pH, Urine 8.0 5.0 - 8.0 pH LAB URINALYSIS - AUTOMATED METHOD 05/20/2025 8:42 AM [facility] Leukocytes, Urine Negative Negative LAB URINALYSIS - AUTOMATED METHOD 05/20/2025 8:42 AM [facility] Nitrite, Urine Negative Negative LAB URINALYSIS - AUTOMATED METHOD 05/20/2025 8:42 AM [facility] Protein, Urine Negative <=Trace mg/dL LAB URINALYSIS - AUTOMATED METHOD 05/20/2025 8:42 AM [facility] Glucose, Urine Negative Negative mg/dL LAB URINALYSIS - AUTOMATED METHOD 05/20/2025 8:42 AM [facility] Ketones, Urine Negative Negative mg/dL LAB URINALYSIS - AUTOMATED METHOD 05/20/2025 8:42 AM [facility] Urobilinogen, Urine 0.2 0.2 - 1.0 mg/dL LAB URINALYSIS - AUTOMATED METHOD 05/20/2025 8:42 AM [facility] Bilirubin, Urine Negative Negative LAB URINALYSIS - AUTOMATED METHOD 05/20/2025 8:42 AM [facility] Blood, Urine Negative Negative LAB URINALYSIS - AUTOMATED METHOD 05/20/2025 8:42 AM [facility] Urine Urine specimen obtained by clean catch procedure / Unknown Non-blood Collection / Unknown 05/20/2025 7:47 AM EDT 05/20/2025 8:26 AM EDT us Nolberto Rodriguez NP LAB URINE ORDERABLES Final Re sult [facility] [address] [place] [address], [place] [phone] * (ABNORMAL) Lipid panel with reflex to direct LDL (05/20/2025 7:39 AM EDT) Cholesterol 178 0 - 200 mg/dL LAB CHEMISTRY METHOD 05/20/2025 9:00 AM [facility] Triglycerides 108 0 - 150 mg/dL LAB CHEMISTRY METHOD 05/20/2025 9:00 AM [facility] HDL 52 >=40 mg/dL LAB CHEMISTRY METHOD 05/20/2025 9:00 AM T [facility] LDL Calculated 104(H) 0 - 100 mg/dL LAB CHEMISTRY METHOD 05/20/2025 9:00 AM T [facility] Comment:Estimated LDL Calcul ated using equation: Total cholesterol - HDL cholesterol - (Triglycerides/5) VLDL Cholesterol Paul 21.6 mg/dL LAB CHEMISTRY METHOD 05/20/2025 9:00 AM [facility] Non HDL Chol. (LDL+VLDL) 126 <145 mg/dL LAB CHEMISTRY METHOD 05/20/2025 9:00 AM [facility] Chol/HDL Ratio 3.4 0.0 - 4.4 LAB CHEMISTRY METHOD 05/20/2025 9:00 AM [facility] Blood Venous blood specimen / Unknown Venipuncture / Unknown 05/20/2025 7:39 AM EDT 05/20/2025 8:25 AM EDT us Nolberto Rodriguez SOLAR PROJECT COORDINATION SPECIALIST LAB BLOOD ORDERABLES Final Re sult [facility] [address] [place] [address], * (ABNORMAL) CBC auto differential (05/20/2025 7:39 AM EDT) WBC 7.8 4.8 - 10.8 K/mcL LAB HEMETOLOGY METHOD 05/20/2025 8:30 AM EDT [facility] RBC 3.80(L) 4.50 - 5.50 M/[facility] LAB HEMETOLOGY METHOD 05/20/2025 8:30 AM EDT [facility] Hemoglobin 12.3(L) 13.5 - 17.5 g/dL LAB HEMETOLOGY METHOD 05/20/2025 8:30 AM EDT [facility] Hematocrit 36.7(L) 42.0 - 54.0 % LAB HEMETOLOGY METHOD 05/20/2025 8:30 AM EDT [facility] MCV 96.6 79.0 - 98.0 FL LAB HEMETOLOGY METHOD 05/20/2025 8:30 AM EDT [facility] MCH 32.4(H) 27.0 - 32.0 pcg LAB HEMETOLOGY METHOD 05/20/2025 8:30 AM EDT [facility] MCHC 33.5 32.0 - 37.0 g/dL LAB HEMETOLOGY METHOD 05/20/2025 8:30 AM EDT [facility] RDW 12.9 11.0 - 15.0 % LAB HEMETOLOGY METHOD 05/20/2025 8:30 AM EDT [facility] Platelets 330 130 - 400 K/mcL LAB HEMETOLOGY METHOD 05/20/2025 8:30 AM EDT [facility] MPV 9.7 7.0 - 11.0 FL LAB HEMETOLOGY METHOD 05/20/2025 8:30 AM [facility] NRBC 0.0 <1.0 % LAB HEMETOLOGY METHOD 05/20/2025 8:30 AM [facility] NRBC Absolute 0.00 <0.10 K/mcL LAB HEMETOLOGY METHOD 05/20/2025 8:30 AM [facility] Neutrophils Relative 59.7 % LAB HEMETOLOGY METHOD 05/20/2025 8:30 AM [facility] Lymphocytes Relative 28.5 % LAB HEMETOLOGY METHOD 05/20/2025 8:30 AM [facility] Monocytes Relative 8.7 % LAB HEMETOLOGY METHOD 05/20/2025 8:30 AM [facility] Eosinophils Relative 2.4 % LAB HEMETOLOGY METHOD 05/20/2025 8:30 AM [facility] Basophils Relative 0.6 % LAB HEMETOLOGY METHOD 05/20/2025 8:30 AM [facility] Immature Granulocytes Relative 0.1 % LAB HEMETOLOGY METHOD 05/20/2025 8:30 AM [facility] Neutrophils Absolute 4.66 1.50 - 7.00 K/mcL LAB HEMETOLOGY METHOD 05/20/2025 8:30 AM [facility] Lymphocytes Absolute 2.23 1.00 - 5.00 K/mcL LAB HEMETOLOGY METHOD 05/20/2025 8:30 AM [facility] Monocytes Absolute 0.68 0.20 - 1.00 K/mcL LAB HEMETOLOGY METHOD 05/20/2025 8:30 AM [facility] Eosinophils Absolute 0.19 0.00 - 0.50 K/mcL LAB HEMETOLOGY METHOD 05/20/2025 8:30 AM [facility] Basophils Absolute 0.05 0.00 - 0.20 K/mcL LAB HEMETOLOGY METHOD 05/20/2025 8:30 AM EDT [facility] Immature Granulocytes Absolute 0.01 0.00 - 0.03 K/mcL LAB HEMETOLOGY METHOD 05/20/2025 8:30 AM EDT [facility] Blood Venous blood specimen / Unknown Venipuncture / Unknown 05/20/2025 7:39 AM EDT 05/20/2025 8:26 AM EDT Nolberto Rodriguez SOLAR PROJECT COORDINATION SPECIALIST LAB BLOOD ORDERABLES Final Re sult Performing Organization Address City/[facility]/ZIP Co de Phone Number [facility] [address] [place] [address], [place] [phone] * Vitamin D 25 hydroxy (05/20/2025 7:39 AM EDT) Vit D, 25-Hydroxy 30.2 30.0 - 80.0 ng/mL LAB CHEMISTRY METHOD 05/20/2025 9:54 AM EDT [facility] Blood Venous blood specimen / Unknown Venipuncture / Unknown 05/20/2025 7:39 AM EDT 05/20/2025 8:25 AM EDT us Nolberto Rodriguez SOLAR PROJECT COORDINATION SPECIALIST LAB BLOOD ORDERABLES Final Re sult Performing Organization Address City/[facility]/ZIP Co de Phone Number [facility] [address] [place] [address], [place] [phone] * Thyroid stimulating hormone (05/20/2025 7:39 AM EDT) TSH 2.10 0.40 - 4.00 mcIU/mL LAB CHEMISTRY METHOD 05/20/2025 9:54 AM EDT [facility] Blood Venous blood specimen / Unknown Venipuncture / Unknown 05/20/2025 7:39 AM EDT 05/20/2025 8:25 AM EDT Nolberto Rodriguez SOLAR PROJECT COORDINATION SPECIALIST LAB BLOOD ORDERABLES Final Re sult [facility] [address] [place] [address], [place] [phone] * Hemoglobin A1c (05/20/2025 7:39 AM EDT) Pathologist [facility] Hemoglobin A1C 5.7 <6.5 % LAB CHEMISTRY METHOD 05/20/2025 10:22 AM EDT [facility] Mean Bld Glu Estim. 117 mg/dL LAB CHEMISTRY METHOD 05/20/2025 10:22 AM EDT [facility] Blood Venous blood specimen / Unknown Venipuncture / Unknown 05/20/2025 7:39 AM EDT 05/20/2025 8:26 AM EDT Nolberto Rodriguez SOLAR PROJECT COORDINATION SPECIALIST LAB BLOOD ORDERABLES Final Re sult Performing Organization Address City/[facility]/ZIP Co de Phone Number [facility] [address] [place] [address], [place] [phone] * (ABNORMAL) Comprehensive metabolic panel (05/20/2025 7:39 AM EDT) [facility] Sodium 137 133 - 145 mmol/L LAB CHEMISTRY METHOD 05/20/2025 9:04 AM EDT [facility] Potassium 4.2 3.5 - 5.5 mmol/L LAB CHEMISTRY METHOD 05/20/2025 9:04 AM EDT [facility] Chloride 107 96 - 110 mmol/L LAB CHEMISTRY METHOD 05/20/2025 9:04 AM EDT [facility] CO2 28 21 - 32 mmol/L LAB CHEMISTRY METHOD 05/20/2025 9:04 AM EDT [facility] Anion Gap 2(L) 3 - 11 LAB CHEMISTRY METHOD 05/20/2025 9:04 AM EDT [facility] Glucose 83 70 - 100 mg/dL LAB CHEMISTRY METHOD 05/20/2025 9:04 AM [facility] BUN 19 5 - 25 mg/dL LAB CHEMISTRY METHOD 05/20/2025 9:04 AM [facility] Creatinine 0.85 0.70 - 1.30 mg/dL LAB CHEMISTRY METHOD 05/20/2025 9:04 AM [facility] eGFR 115 >=60 mL/min/1. 73m2 LAB CHEMISTRY METHOD 05/20/2025 9:04 AM [facility] Comment:Calculation based on the Chronic Kidney Disease Epidemiology Collaboration (CKD-EPI) equation refit without adjustment for race. BUN/Creatinine Ratio 22.4 LAB CHEMISTRY METHOD 05/20/2025 9:04 AM [facility] Calcium 9.7 8.5 - 10.5 mg/dL LAB CHEMISTRY METHOD 05/20/2025 9:04 AM [facility] AST (SGOT) 42 10 - 42 unit/L LAB CHEMISTRY METHOD 05/20/2025 9:04 AM [facility] ALT (SGPT) 100(H) 10 - 60 unit/L LAB CHEMISTRY METHOD 05/20/2025 9:04 AM [facility] Alkaline Phosphatase 99 42 - 121 unit/L LAB CHEMISTRY METHOD 05/20/2025 9:04 AM [facility] Total Protein 7.1 6.0 - 8.0 g/dL LAB CHEMISTRY METHOD 05/20/2025 9:04 AM [facility] Albumin 4.0 3.2 - 5.0 g/dL LAB CHEMISTRY METHOD 05/20/2025 9:04 AM [facility] Total Bilirubin 0.5 0.0 - 1.4 mg/dL LAB CHEMISTRY METHOD 05/20/2025 9:04 AM [facility] Blood Venous blood specimen / Unknown Venipuncture / Unknown 05/20/2025 7:39 AM EDT 05/20/2025 8:25 AM EDT us Nolberto Rodriguez NP LAB BLOOD ORDERABLES Final Re sult [facility] [address] [place] [address], from Last 3 Months Insurance Care Teams Security Professionals Relationship Specialty Start Date End Date Nolberto Rodriguez, TANESHA [address] [address] PCP - General Nurse Practitioner 05/20/25
== END 2025-07-10 09:18 | disposition home or self-care (01) ==
LOC: HO.HSM 08:56
PROVIDERS: PCP Internal Medicine; Visit Provider Registered Nurse
DX: G40.309 Generalized idiopathic epilepsy and epileptic syndromes, not intractable, without status epilepticus (principal); F41.9 Anxiety disorder, unspecified
CPT/HCPCS: 99214